=== PATIENT | male | born 1985 | race African-American/Black ===

== ENCOUNTER 2018-12-29 08:46 | Emergency (ER) | payer SELFPAY ==
--- NOTE | 2018-12-29 09:42 | ER ---
Nurse's Notes [facility] Name: Jose Nieves Age: 33 yrs Sex: Male : 1985 Arrival Date: 12/29/2018 Time: 08:48 Bed 11 Private MD: None, None Diagnosis: Headache;Rash and other nonspecific skin eruption Presentation: 12/29 09:01 Presenting complaint: Patient states: feels like he has a rash on his neck, feels iw burning sensation, and also has had headaches for over a month takes tylenol but still has a headache, hx of migraines, not on meds. Transition of care: patient was not received from another setting of care. Onset of symptoms was November 2018. Risk Assessment: Do you want to hurt yourself or someone else? Patient reports no desire to harm self or others. Initial Sepsis Screen: Does the patient meet any 2 criteria? No. Patient's initial sepsis screen is negative. Does the patient have a suspected source of infection? No. Patient's initial sepsis screen is negative. Care prior to arrival: None. 09:01 Method Of Arrival: Ambulatory iw 09:01 Acuity: NEDA 4 iw Triage Assessment: 09:00 Pain: Also complains of no other associated symptoms. iw 09:15 Headache History: The patient has had previous headaches and this one is similar to iw previous episodes. 10:18 Pain: Pain began. iw Historical: - Allergies: 09:02 No Known Allergies; iw - Home Meds: 09:02 None [Active]; iw - PMHx: 09:02 None; iw - PSHx: 09:02 Tonsillectomy; iw - Immunization history:: Adult Immunizations. - Ebola Screening: : Patient negative for fever greater than or equal to 101.5 degrees Fahrenheit, and additional compatible Ebola Virus Disease symptoms Patient denies exposure to infectious person Patient denies travel to an Ebola-affected area in the 21 days before illness onset No symptoms or risks identified at this time. - Social history:: Smoking status: . Screenin:13 Abuse screen: Denies threats or abuse. Denies injuries from another. Nutritional iw screening: No deficits noted. Tuberculosis screening: No symptoms or risk factors identified. Fall Risk None identified. Assessment: 09:12 General: Appears in no apparent distress. Behavior is calm, cooperative. Pain: iw Complains of pain in forehead Pain currently is 7 out of 10 on a pain scale. Neuro: Level of Consciousness is awake, alert, obeys commands, Oriented to person, place, time, situation, Moves all extremities. Full function. Cardiovascular: Patient's skin is warm and dry. Respiratory: Respiratory effort is even, unlabored, Respiratory pattern is regular. Derm: Skin is intact, is healthy with good turgor. Musculoskeletal: Range of motion: intact in all extremities. Vital Signs: 09:02 BP 109 / 84; Pulse 73; Resp 18; Temp 97.4(TE); Pulse Ox 98% ; Weight 113.4 kg; Height 5 iw ft. 10 in. (177.80 cm); Pain 7/10; 09:02 Body Mass Index 35.87 (113.40 kg, 177.80 cm) iw ED Course: 08:48 Patient arrived in ED. mr 08:49 None, None is Private Physician. mr 08:54 Keeley Morse, RN is Primary Nurse. iw 08:56 [facility] [place] 08:56 Dillan Hinton MD is Attending Physician. jmm 09:02 Triage completed. iw 09:02 Arm band placed on. iw 09:15 Patient has correct armband on for positive identification. iw 09:41 aDvid Monsalve MD is Referral Physician. [place] 09:47 No provider procedures requiring assistance completed. Patient did not have IV access iw during this emergency room visit. Administered Medications: No medications were administered Outcome: 09:41 Discharge ordered by MD. [place] 09:47 Discharged to home ambulatory. iw 09:47 Condition: good 09:47 Discharge instructions given to patient, Instructed on discharge instructions, follow up and referral plans. Demonstrated understanding of instructions, follow-up care. 09:48 Patient left the ED. iw Signatures: Nitin Gaines PA PA jmm Rivera, Mary mr Keeley Morse, RN RN iw Corrections: (The following items were deleted from the chart) 09:08 09:02 Resp 18bpm; Pulse Ox 98%; Temp 97.4F Temporal; 113.4 kg; Height 5 ft. 10 in.; iw BMI: 35.8; Pain 7/10; iw
--- NOTE | 2018-12-29 09:42 | EDPHYS ---
Physician Documentation [facility] Name: Jose Nieves Age: 33 yrs Sex: Male : 1985 Arrival Date: 12/29/2018 Time: 08:48 Bed 11 Private MD: None, None ED Physician Dillan Hinton HPI: 12/29 09:36 This 33 yrs old Black Male presents to ER via Ambulatory with complaints of Rash, jmm Headache. 09:36 The patient's rash thought to be caused by an unknown cause. Onset: The jmm symptoms/episode began/occurred gradually, 1 week(s) ago. Associated signs and symptoms: Pertinent positives: burning sensation, Pertinent negatives: itching, nausea, swelling of lips, swelling of throat, swelling of tongue. This is a 33 year old male with no chronic medical conditions that presents to the ED with complaints of facial rash for 1 week. Patient also complains of a gradual onset headache beginning 1 month ago. Patient states having similar intermittent headaches for the past year. Denies neck stiffness. . Historical: - Allergies: 09:02 No Known Allergies; iw - Home Meds: 09:02 None [Active]; iw - PMHx: 09:02 None; iw - PSHx: 09:02 Tonsillectomy; iw - Immunization history:: Adult Immunizations. - Ebola Screening: : Patient negative for fever greater than or equal to 101.5 degrees Fahrenheit, and additional compatible Ebola Virus Disease symptoms Patient denies exposure to infectious person Patient denies travel to an Ebola-affected area in the 21 days before illness onset No symptoms or risks identified at this time. - Social history:: Smoking status: . ROS: 09:36 Constitutional: Negative for fever, chills, and weight loss, Cardiovascular: Negative jmm for chest pain, palpitations, and edema, Respiratory: Negative for shortness of breath, cough, wheezing, and pleuritic chest pain. 09:36 Skin: Positive for rash. 09:36 Neuro: Positive for headache. 09:36 All other systems are negative. Exam: 09:36 Constitutional: This is a well developed, well nourished patient who is awake, alert, jmm and in no acute distress. Head/Face: atraumatic. Eyes: EOMI, no conjunctival erythema appreciated ENT: Moist Mucus Membranes Neck: Trachea midline, Supple Chest/axilla: Normal chest wall appearance and motion. Cardiovascular: Regular rate and rhythm. No edema appreciated Respiratory: Normal respirations, no respiratory distress appreciated Abdomen/GI: Non distended, soft 09:36 Skin: rash noted consistent with dermatitis to the left side of the forehead, non tender to palpation. 09:36 Neuro: Orientation: is normal, Mentation: is normal, Memory: is normal, Gait: is steady. 09:36 Psych: Behavior/mood is pleasant, cooperative. Vital Signs: 09:02 BP 109 / 84; Pulse 73; Resp 18; Temp 97.4(TE); Pulse Ox 98% ; Weight 113.4 kg; Height 5 iw ft. 10 in. (177.80 cm); Pain 7/10; 09:02 Body Mass Index 35.87 (113.40 kg, 177.80 cm) iw MDM: 09:35 Patient medically screened. [facility] 09:36 Data reviewed: vital signs, nurses notes. Counseling: I had a detailed discussion with [facility] the patient and/or guardian regarding: the historical points, exam findings, and any diagnostic results supporting the discharge/admit diagnosis, the need for outpatient follow up, to return to the emergency department if symptoms worsen or persist or if there are any questions or concerns that arise at home. Refusal of service: The patient/guardian displays adequate decision making capability and despite a detailed discussion of alternatives, benefits, risks, and consequences refuses: CT Scan. ED course: No focal neuro deficits, patient is alert and non toxic in appearance. A febrile. Character of headache is not consistent with SAH or meningitis. Patient is given return precautions. . Administered Medications: No medications were administered Disposition: 11:44 Co-signature as Attending Physician, Dillan Hinton MD. rn Disposition: 12/29/18 09:41 Discharged to Home. Impression: Headache, Rash and other nonspecific skin eruption. - Condition is Stable. - Discharge Instructions: General Headache Without Cause, Rash. - Medication Reconciliation Form, Thank You Letter, Antibiotic Education, Prescription Opioid Use, Work release form form. - Follow up: David Monsalve MD; When: 2 - 3 days; Reason: Recheck today's complaints, Continuance of care, Re-evaluation by your physician. Signatures: Nitin Gaines PA PA Keeley Alcantar RN RN iw Dillan Hinton MD MD field kiln burner: (The following items were deleted from the chart) 09:48 09:42 12/29/2018 09:41 Discharged to Home. Impression: Headache; Rash and other iw nonspecific skin eruption. Condition is Stable. Forms are Medication Reconciliation Form, Thank You Letter, Antibiotic Education, Prescription Opioid Use. Follow up: David Monsalve; When: 2 - 3 days; Reason: Recheck today's complaints, Continuance of care, Re-evaluation by your physician. harrison
== END 2018-12-29 09:48 | disposition home or self-care (01) ==
LOC: ER 08:46
DX: R21 Rash and other nonspecific skin eruption (principal)
CPT/HCPCS: 99281

== ENCOUNTER 2019-05-19 02:22 | Emergency (ER) | payer SELFPAY ==
[2019-05-19 02:51] LABS: Absolute Lymphocytes (CBC) 2.8 K/uL (0.7-4.9); Basophils % 0.8 % (0-1.3); Hematocrit 47.1 % (39.6-49.0); MPV 8.2 fL (7.6-11.3); Monocytes % 7.7 % (3.3-12.3); RBC Red Blood Cell Count 5.88 M/uL (4.33-5.43)
[2019-05-19] MEDS ORDERED: LIDOCAINE VISCOUS 2% SOLN 15 ML UDC ONE (02:53)
[2019-05-19] MEDS ORDERED: MAGNES/ALUMIN/SIMET 30ML UCUP ONE (02:54)
[2019-05-19 03:08] LABS: ALT/SGPT 28 U/L (12-78); AST/SGOT 14 U/L (15-37); Albumin 3.5 g/dL (3.4-5.0); Alkaline Phosphatase 81 U/L (45-117); BUN Blood Urea Nitrogen 13 mg/dL (7-18); Bicarbonate 30 mmol/L (21-32); Bilirubin Direct 0.1 mg/dL (0-0.2); Bilirubin Total 0.4 mg/dL (0.2-1.0); Glucose Level 101 mg/dL (74-106); Lipase 91 U/L (73-393); Potassium 3.5 mmol/L (3.5-5.1); Protein, Total 7.2 g/dL (6.4-8.2); Sodium Level 141 mmol/L (136-145)
[2019-05-19] MEDS ORDERED: MEPERIDINE HCL 25 MG/0.5 ML ONE (03:31)
[2019-05-19] MEDS ORDERED: DIPHENHYDRAMINE 50 MG/ML VIAL ONE (03:58)
--- NOTE | 2019-05-19 05:00 | EDPHYS ---
Physician Documentation [facility] Name: Jose Nieves Age: 34 yrs Sex: Male : 1985 Arrival Date: 05/19/2019 Time: 02:23 Bed 14 Private MD: ED Physician Dillan Hinton HPI: 05/19 02:40 This 34 yrs old Black Male presents to ER via Ambulatory with complaints of Abdominal rn Pain. 02:40 The patient presents with abdominal pain in the epigastric area. Onset: The rn symptoms/episode began/occurred just prior to arrival. The symptoms do not radiate. Associated signs and symptoms: none. Pertinent negatives: nausea and vomiting, diarrhea, fever, shortness of breath. The symptoms are described as sharp. Modifying factors: The symptoms are alleviated by nothing, the symptoms are aggravated by touching the area. Severity of pain: At its worst the pain was moderate in the emergency department the pain is unchanged. The patient has not experienced similar symptoms in the past. The patient has not recently seen a physician. Denies heavy dinner or drinking, no trauma. + sudden onset epigastric and mid abd pain.. Historical: - Allergies: 02:34 No Known Allergies; ao - Home Meds: 02:34 None [Active]; ao - PMHx: 02:34 None; ao - PSHx: 02:34 None; ao - Immunization history:: Adult Immunizations up to date. - Social history:: Smoking status: Patient/guardian denies using tobacco, Patient/guardian denies using alcohol, street drugs. - Ebola Screening: : Patient negative for fever greater than or equal to 101.5 degrees Fahrenheit, and additional compatible Ebola Virus Disease symptoms Patient denies exposure to infectious person Patient denies travel to an Ebola-affected area in the 21 days before illness onset. - Family history:: not pertinent. - Hospitalizations: : No recent hospitalization is reported. ROS: 02:40 Constitutional: Negative for fever, chills, and weight loss, Eyes: Negative for injury, rn pain, redness, and discharge, Neck: Negative for injury, pain, and swelling, Cardiovascular: Negative for chest pain, palpitations, and edema, Respiratory: Negative for shortness of breath, cough, wheezing, and pleuritic chest pain, Abdomen/GI: + mid and upper abd pain, negative for vomiting/diarrhea Back: Negative for injury and pain, : Negative for injury, bleeding, discharge, and swelling, MS/Extremity: Negative for injury and deformity, Skin: Negative for injury, rash, and discoloration, Neuro: Negative for headache, weakness, numbness, tingling, and seizure. Exam: 02:40 Constitutional: This is a well developed, well nourished patient who is awake, alert, rn appears anxious Head/Face: Normocephalic, atraumatic. Eyes: Pupils equal round and reactive to light, extra-ocular motions intact. Lids and lashes normal. Conjunctiva and sclera are non-icteric and not injected. Cornea within normal limits. Periorbital areas with no swelling, redness, or edema. ENT: dry MM Respiratory: No increased work of breathing, no retractions or nasal flaring. Abdomen/GI: soft, + epigastric and mid abd tenderness, no rebound or peritoneal signs MS/ Extremity: Pulses equal, no cyanosis. Neurovascular intact. Full, normal range of motion. Equal circumference. Neuro: Awake and alert, GCS 15, oriented to person, place, time, and situation. Cranial nerves II-XII grossly intact. Motor strength 5/5 in all extremities. Sensory grossly intact. Cerebellar exam normal. Normal gait. Vital Signs: 02:34 BP 134 / 100; Pulse 65; Resp 16 S; Temp 97.7(O); Pulse Ox 99% on R/A; Weight 95.25 kg ao (R); Height 5 ft. 10 in. (177.80 cm) (R); Pain 7/10; 03:00 BP 153 / 109; Pulse 71; Resp 16; Pulse Ox 100% on R/A; jb4 04:00 BP 132 / 93; Pulse 69; Resp 16; Pulse Ox 100% on R/A; jb4 05:01 BP 132 / 94; Pulse 63; Resp 16; Pulse Ox 99% on R/A; jb4 02:34 Body Mass Index 30.13 (95.25 kg, 177.80 cm) ao MDM: 02:28 Patient medically screened. rn 04:58 Differential diagnosis: gastritis, gastroesophageal reflux disease, non-specific abd rn pain, pancreatitis. Data reviewed: vital signs, nurses notes, lab test result(s), radiologic studies, CT scan, and as a result, I will discharge patient. Counseling: I had a detailed discussion with the patient and/or guardian regarding: the historical points, exam findings, and any diagnostic results supporting the discharge/admit diagnosis, lab results, radiology results, the need for outpatient follow up, to return to the emergency department if symptoms worsen or persist or if there are any questions or concerns that arise at home. Response to treatment: the patient's symptoms have mildly improved after treatment, and as a result, I will discharge patient. Special discussion: Based on the patient's Hx, exam, and Dx evaluation, there is no indication for emergent surgery or inpatient Tx. It is understood by the patient/guardian that if the Sx's persist or worsen they need to return immediately for re-evaluation. I discussed with the patient/guardian in detail that at this point there is no indication for admission to the hospital. It is understood, however, that if the symptoms persist or worsen the patient needs to return immediately for re-evaluation. ED course: CT and bloodwork without acute findings, + mesenteric adenitis, may be coming down with viral syndrome, will dc home with prn pain meds and return precautions.. 05/19 02:31 Order name: Basic Metabolic Panel rn 05/19 02:31 Order name: CBC with Diff; Complete Time: 03:12 rn 05/19 02:31 Order name: Creatinine for Radiology; Complete Time: 03:12 rn 05/19 02:31 Order name: Hepatic Function; Complete Time: 03:12 rn 05/19 02:31 Order name: Lipase; Complete Time: 03:12 rn 05/19 02:32 Order name: Basic Metabolic Panel; Complete Time: 03:12 EDNV 05/19 02:31 Order name: IV Saline Lock; Complete Time: 02:44 rn 05/19 02:31 Order name: Labs collected and sent; Complete Time: 02:44 rn 05/19 02:31 Order name: CT Abd/Pelvis - IV Contrast Only rn 05/19 02:32 Order name: EKG; Complete Time: 02:33 rn 05/19 02:32 Order name: EKG - Nurse/Tech; Complete Time: 02:57 rn Administered Medications: 02:41 Drug: GI Cocktail without - (Maalox Suspension 30 ml, Lidocaine Liquid 2 % 15 ao ml) Route: PO; 03:13 Follow up: Response: No adverse reaction; Pain is unchanged, physician notified jb4 03:22 Drug: Demerol 25 mg Route: IVP; Site: right antecubital; jb4 03:52 Follow up: Response: No adverse reaction; Pain is decreased jb4 03:47 Drug: Benadryl 50 mg Route: IVP; Site: right antecubital; jb4 05:33 Follow up: Response: No adverse reaction; Marked relief of symptoms jb4 Disposition: 05/19/19 04:59 Discharged to Home. Impression: Nonspecific mesenteric lymphadenitis, Unspecified abdominal pain. - Condition is Stable. - Discharge Instructions: Abdominal Pain, Adult, Mesenteric Adenitis, Pediatric. - Prescriptions for Bentyl 20 mg Oral Tablet - take 1 tablet by ORAL route every 6 hours As needed; 20 tablet. Tylenol- Codeine #3 300-30 mg Oral Tablet - take 1 tablet by ORAL route every 6 hours As needed; 15 tablet. - Medication Reconciliation Form, Thank You Letter, Antibiotic Education, Prescription Opioid Use form. - Follow up: Private Physician; When: As needed; Reason: Recheck today's complaints, Re-evaluation by your physician. - Problem is new. - Symptoms have improved. Signatures: Dispatcher [employer] EDMS Dillan Hinton MD MD rn Ortiz, Alex, RN RN ao Bryson, James, RN RN jb4 Corrections: (The following items were deleted from the chart) 05:35 04:59 05/19/2019 04:59 Discharged to Home. Impression: Nonspecific mesenteric jb4 lymphadenitis; Unspecified abdominal pain. Condition is Stable. Forms are Medication Reconciliation Form, Thank You Letter, Antibiotic Education, Prescription Opioid Use. Follow up: Private Physician; When: As needed; Reason: Recheck today's complaints, Re-evaluation by your physician. Problem is new. Symptoms have improved. rn
--- NOTE | 2019-05-19 05:00 | ER ---
Nurse's Notes [facility] Name: Jose Nieves Age: 34 yrs Sex: Male : 1985 Arrival Date: 05/19/2019 Time: 02:23 Bed 14 Private MD: Diagnosis: Nonspecific mesenteric lymphadenitis;Unspecified abdominal pain Presentation: 05/19 02:32 Presenting complaint: Patient states: Abdominal pain for 3 hours. negative nausea, ao vomiting, fever or diarrea. Transition of care: patient was not received from another setting of care. Onset of symptoms was May 19, 2019. Risk Assessment: Do you want to hurt yourself or someone else? Patient reports no desire to harm self or others. Initial Sepsis Screen: Does the patient meet any 2 criteria? No. Patient's initial sepsis screen is negative. Does the patient have a suspected source of infection? No. Patient's initial sepsis screen is negative. Care prior to arrival: None. 02:32 Method Of Arrival: Ambulatory ao 02:32 Acuity: NEDA 3 ao Historical: - Allergies: 02:34 No Known Allergies; ao - Home Meds: 02:34 None [Active]; ao - PMHx: 02:34 None; ao - PSHx: 02:34 None; ao - Immunization history:: Adult Immunizations up to date. - Social history:: Smoking status: Patient/guardian denies using tobacco, Patient/guardian denies using alcohol, street drugs. - Ebola Screening: : Patient negative for fever greater than or equal to 101.5 degrees Fahrenheit, and additional compatible Ebola Virus Disease symptoms Patient denies exposure to infectious person Patient denies travel to an Ebola-affected area in the 21 days before illness onset. - Family history:: not pertinent. - Hospitalizations: : No recent hospitalization is reported. Screenin:36 Abuse screen: Denies threats or abuse. Denies injuries from another. Nutritional ao screening: No deficits noted. Tuberculosis screening: No symptoms or risk factors identified. Fall Risk None identified. Assessment: 02:28 General: Appears in no apparent distress. uncomfortable, Behavior is calm, cooperative, jb4 appropriate for age. Pain: Complains of pain in epigastric area, right upper quadrant and left upper quadrant Pain does not radiate. Pain currently is 9 out of 10 on a pain scale. Quality of pain is described as crampy, Pain began 1 day ago. Neuro: Level of Consciousness is awake, alert, obeys commands, Oriented to person, place, time, situation. Cardiovascular: Patient's skin is warm and dry. Respiratory: Airway is patent Respiratory effort is even, unlabored, Respiratory pattern is regular, symmetrical. GI: Abdomen is non-distended, obese, Bowel sounds present X 4 quads. Abd is soft X 4 quads Abd is non tender in umbilical area, suprapubic area, right lower quadrant and left lower quadrant Abdomen is tender to palpation in epigastric area, right upper quadrant and left upper quadrant. : No signs and/or symptoms were reported regarding the genitourinary system. EENT: No signs and/or symptoms were reported regarding the EENT system. Derm: Skin is intact, Skin is dry, Skin is normal, Skin temperature is warm. Musculoskeletal: No signs and/or symptoms reported regarding the musculoskeletal system. 03:13 Reassessment: Patient appears in no apparent distress at this time. Patient and/or jb4 family updated on plan of care and expected duration. Pain level reassessed. Patient is alert, oriented x 3, equal unlabored respirations, skin warm/dry/pink. Pt reports an increase in pain provider notified, see MAR for orders. 03:40 Reassessment: Pt back from CT, Radiology staff reports pt showing hives after IV jb4 contrast, provider notified, see MAR for orders. 04:00 Reassessment: Patient appears in no apparent distress at this time. Patient and/or jb4 family updated on plan of care and expected duration. Pain level reassessed. Patient is alert, oriented x 3, equal unlabored respirations, skin warm/dry/pink. 05:30 Reassessment: Patient appears in no apparent distress at this time. Patient and/or jb4 family updated on plan of care and expected duration. Pain level reassessed. Patient is alert, oriented x 3, equal unlabored respirations, skin warm/dry/pink. PT left ED ambulatory with steady gait, verbalized understanding of d/c and follow up instructions. hives have cleared. Patient states feeling better. Vital Signs: 02:34 BP 134 / 100; Pulse 65; Resp 16 S; Temp 97.7(O); Pulse Ox 99% on R/A; Weight 95.25 kg ao (R); Height 5 ft. 10 in. (177.80 cm) (R); Pain 7/10; 03:00 BP 153 / 109; Pulse 71; Resp 16; Pulse Ox 100% on R/A; jb4 04:00 BP 132 / 93; Pulse 69; Resp 16; Pulse Ox 100% on R/A; jb4 05:01 BP 132 / 94; Pulse 63; Resp 16; Pulse Ox 99% on R/A; jb4 02:34 Body Mass Index 30.13 (95.25 kg, 177.80 cm) ao ED Course: 02:23 Patient arrived in ED. am2 02:28 Marcel Vann, RN is Primary Nurse. jb4 02:28 Dillan Hinton MD is Attending Physician. rn 02:33 Triage completed. ao 02:35 Arm band placed on right wrist. Patient placed in an exam room, on a stretcher, on ao pulse oximetry, Patient notified of wait time. 02:36 Patient has correct armband on for positive identification. Pulse ox on. NIBP on. ao 02:40 Initial lab(s) drawn, by me, by EMS personnel. Inserted saline lock: 20 gauge in right jb4 antecubital area, using aseptic technique. Blood collected. 02:51 Radiology exam delayed due to lab results not completed at this time. (BUN/Creatinine). eh 03:52 CT Abd/Pelvis - IV Contrast Only In Process Unspecified. EDMS 05:01 No provider procedures requiring assistance completed. IV discontinued, intact, jb4 bleeding controlled, No redness/swelling at site. Administered Medications: 02:41 Drug: GI Cocktail without - (Maalox Suspension 30 ml, Lidocaine Liquid 2 % 15 ao ml) Route: PO; 03:13 Follow up: Response: No adverse reaction; Pain is unchanged, physician notified jb4 03:22 Drug: Demerol 25 mg Route: IVP; Site: right antecubital; jb4 03:52 Follow up: Response: No adverse reaction; Pain is decreased jb4 03:47 Drug: Benadryl 50 mg Route: IVP; Site: right antecubital; jb4 05:33 Follow up: Response: No adverse reaction; Marked relief of symptoms jb4 Outcome: 04:59 Discharge ordered by . rn 05:01 Discharged to home ambulatory, with family. jb4 05:01 Condition: stable 05:01 Discharge instructions given to patient, Instructed on discharge instructions, follow up and referral plans. medication usage, Demonstrated understanding of instructions, follow-up care, medications, Prescriptions given X 2. 05:35 Patient left the ED. jb4 Signatures: Dispatcher [employer] Matthew Gillette Roman, MD MD rn Ortiz, Alex, RN RN ao Bryson, James, RN RN jb4 Asia Ward
--- NOTE | 2019-05-19 06:39 | EKG ---
Test Date: 2019-05-19 Test Time: 02:49:24 Orange Grower: DELORES MEASUREMENT RESULTS: Intervals: Rate: 68 DC: 188 QRSD: 100 QT: 380 QTc: 404 [place]: P: 37 DC: 188 QRS: 34 T: 40 INTERPRETIVE STATEMENTS: Normal sinus rhythm Normal ECG No previous ECG available for comparison Electronically Signed On 05-19-19 06:38:43 CDT by Kaden Fernando
--- NOTE | 2019-05-19 10:24 | RAD REPORT ---
EXAM DESCRIPTION: CT - Abdomen Pelvis W Contrast - 05/19/2019 7:12 am CLINICAL HISTORY: Mid abdominal pain. COMPARISON: None. TECHNIQUE: Axial [address] imaging of the abdomen and pelvis performed utilizing intravenous contrast. Reformatted coronal and sagittal images reviewed. A dose reduction technique was utilized with automated exposure control according to patient size. FINDINGS: LOWER THORAX: Clear lung bases. Heart is normal in size. ABDOMEN: LIVER/GALLBLADDER: Normal liver size and contour. Attenuation is decreased due to mild steatosis. No liver mass or biliary dilatation. Normal gallbladder. SPLEEN/PANCREAS: Normal spleen and pancreas. KIDNEYS/ADRENAL GLANDS: Normal adrenal glands. Normal right and left renal attenuation. Normal bilat eral renal enhancement. Lateral right renal exophytic 8 mm cyst. No hydronephrosis. RETROPERITONEAL VESSELS/NODES: Normal aorta and inferior vena cava caliber. No adenopathy. Normal ap pearance of the mesenteric vessels. BOWEL: Normal stomach and small bowel loops. Normal appendix in the right lower quadrant. Normal col on. MESENTERY/PERITONEUM: There is mild left mesenteric edema. A few slightly enlarged central mesenteri c lymph nodes are identified up to 7 mm. No ascites or free air. PELVIS: BLADDER: Normal bladder. GENITAL ORGANS: Prostatic calcification noted. Normal prostate size. PERITONEUM: No pelvic free fluid or lymphadenopathy. BONES AND SOFT TISSUES: Normal bony pelvis, hips, sacrum, and spine. Unremarkable soft tissues. IMPRESSION: 1. Fatty liver. 2. Mild central and left mesenteric adenitis. Electronically signed by: Emy Kaminski DO 05/19/2019 4:03 AM CDT Due to temporary technical issues with the PACS/Fluency reporting system, reports are being signed by the in house radiologist as a courtesy to ensure prompt reporting. The interpreting radiologist is f ully responsible for the content of the report.
== END 2019-05-19 05:35 | disposition home or self-care (01) ==
LOC: ER 02:22
DX: I88.0 Nonspecific mesenteric lymphadenitis (principal)
CPT/HCPCS: 36415; 74177; 80048; 80076; 83690; 85025; 93005; 96374; 96375; 99284; J2175; Q9967

== ENCOUNTER 2022-05-27 08:01 | Emergency (ER) | payer SELFPAY ==
[2022-05-27 08:28] LABS: Absolute Lymphocytes (CBC) 1.6 K/uL (0.7-4.9); Hematocrit 47.7 % (39.6-49.0); Lymphocytes % 13.8 % (15.3-44.8); MCV 80.6 fL (80-100); MPV 7.2 fL (7.6-11.3); RBC Red Blood Cell Count 5.92 M/uL (4.33-5.43)
[2022-05-27] MEDS ORDERED: MORPHINE 4 MG/ML SYR ONE (08:32)
[2022-05-27] MEDS ORDERED: PANTOPRAZOLE 40 MG INJ ONE (08:32)
[2022-05-27] MEDS ORDERED: ONDANSETRON 4 MG/2 ML VIAL ONE (08:32)
[2022-05-27 08:54] LABS: Albumin 3.9 g/dL (3.4-5.0); Bilirubin Direct 0.2 mg/dL (0-0.2); Bilirubin Total 0.7 mg/dL (0.2-1.0); Potassium 3.8 mmol/L (3.5-5.1); Protein, Total 8.1 g/dL (6.4-8.2); Troponin High Sensitivity 4.1 pg/mL (<58.9)
--- NOTE | 2022-05-27 09:21 | RAD REPORT ---
EXAM DESCRIPTION: RAD - Chest Single View - 05/27/2022 8:43 am CLINICAL HISTORY: CHEST PAIN COMPARISON: None TECHNIQUE: AP portable chest image was obtained 05/27/2022 8:43 am . FINDINGS: Lungs are clear. Heart and vasculature are normal. No measurable pleural effusion and no p neumothorax. No acute bony abnormality seen. No acute aortic findings suspected. IMPRESSION: No acute cardiopulmonary process.
--- NOTE | 2022-05-27 09:44 | ER ---
Nurse's Notes [facility] Name: Jose Nieves Age: 37 yrs Sex: Male : 1985 Arrival Date: 05/27/2022 Time: 08:04 Bed 7 Private MD: Diagnosis: Chest pain, unspecified Presentation: 05/27 08:08 Chief complaint: Patient states: upper abd/ epigastric pain since yesterday , vomited iw once. Coronavirus screen: At this time, the client does not indicate any symptoms associated with coronavirus-19. Ebola Screen: Patient negative for fever greater than or equal to 101.5 degrees Fahrenheit, and additional compatible Ebola Virus Disease symptoms Patient denies exposure to infectious person. Patient denies travel to an Ebola-affected area in the 21 days before illness onset. No symptoms or risks identified at this time. Initial Sepsis Screen: Does the patient meet any 2 criteria? No. Patient's initial sepsis screen is negative. Does the patient have a suspected source of infection? No. Patient's initial sepsis screen is negative. Risk Assessment: Do you want to hurt yourself or someone else? Patient reports no desire to harm self or others. Onset of symptoms was May 26, 2022. 08:08 Method Of Arrival: Ambulatory iw 08:08 Acuity: NEDA 3 iw Historical: - Allergies: 08:09 No Known Allergies; iw - Home Meds: 08:09 None [Active]; iw - PMHx: 08:09 None; iw - PSHx: 08:09 None; iw - Immunization history:: Client reports having NOT received the Covid vaccine. - Social history:: Smoking status: Patient denies any tobacco usage or history of. Screenin:30 Abuse screen: Denies threats or abuse. Denies injuries from another. Nutritional jl7 screening: No deficits noted. Tuberculosis screening: No symptoms or risk factors identified. Fall Risk IV access (20 points). Total Ding Fall Scale indicates No Risk (0-24 pts). Assessment: 08:15 General: Appears in no apparent distress. uncomfortable, Behavior is calm, cooperative, jl7 appropriate for age. Pain: Complains of pain in right upper quadrant Pain currently is 8 out of 10 on a pain scale. Quality of pain is described as "Punching". Neuro: Arredondo Agitation-Sedation Scale (RASS): +1 Restless Level of Consciousness is awake, alert, obeys commands, Oriented to person, place, time, situation. Cardiovascular: Patient's skin is warm and dry. Respiratory: Airway is patent Respiratory effort is even, unlabored, Respiratory pattern is regular, symmetrical. GI: Abdomen is round non-distended, Bowel sounds present X 4 quads. Abd is soft and non tender in left upper quadrant, right lower quadrant and left lower quadrant Abd is soft Abdomen is tender to palpation in right upper quadrant Reports nausea, vomiting. : No signs and/or symptoms were reported regarding the genitourinary system. Derm: Skin is pink, warm \\T\\ dry. 09:54 Reassessment: PT D/C HOME AMBULATORY, DX WITH NON-CARDIAC CHEST PAIN. bp Vital Signs: 08:09 BP 141 / 96; Pulse 70; Resp 16; Temp 98.0; Pulse Ox 99% on R/A; iw 08:35 BP 155 / 96; Pulse 78; Resp 15; Pulse Ox 99% ; jl7 09:54 BP 143 / 98; Pulse 68; Resp 16; Pulse Ox 99% ; bp ED Course: 08:04 Patient arrived in ED. as 08:04 Jacqui Calvert FNP-C [facility]. kb 08:04 Gold Antonio DO is Attending Physician. kb 08:09 Triage completed. iw 08:09 Arm band placed on. iw 08:11 Nayan Fairchild, RN is Primary Nurse. bp 08:30 Patient has correct armband on for positive identification. Bed in low position. Call jl7 light in reach. Side rails up X 1. Pulse ox on. NIBP on. 08:30 No provider procedures requiring assistance completed. Initial lab(s) drawn, by skip atwood sent to lab. Inserted saline lock: 20 gauge in right forearm, using aseptic technique. Blood collected. 08:45 XRAY Chest (1 view) In Process Unspecified. EDMS 08:50 Bradley Musa, SHANELL is Primary Nurse. jl7 09:54 IV discontinued, intact, bleeding controlled, No redness/swelling at site. Pressure bp dressing applied. Administered Medications: 08:28 Drug: Zofran (Ondansetron) 4 mg Route: IVP; Site: right forearm; jl7 09:50 Follow up: Response: No adverse reaction bp 08:31 Drug: morphine 4 mg Route: IVP; Infused Over: 4 mins; Site: right forearm; jl7 09:49 Follow up: Response: Pain is decreased bp 08:36 Drug: ProTONIX (pantoprazole) 40 mg Route: IVP; Site: right forearm; jl7 09:50 Follow up: Response: No adverse reaction bp Medication: 08:15 VIS not applicable for this client. jl7 Outcome: 09:43 Discharge ordered by . milton 09:54 Discharged to home ambulatory. bp 09:54 Condition: stable 09:54 Discharge instructions given to patient, Instructed on discharge instructions, follow up and referral plans. Demonstrated understanding of instructions, follow-up care. 09:56 Patient left the ED. bp Signatures: Dispatcher [employer] EDMS Jacqui Calvert, KADEEM-Marnie GOSPEL WORKER-Perla Wilknison Irene, SHANELL RN iw Bradley Musa RN RN jl7 Nayan Fairchild RN RN bp Corrections: (The following items were deleted from the chart) 08:10 08:08 Chief complaint: Patient states: upper abd pain since yesterday , vomited once iw iw 08:10 08:08 Chief complaint: Patient states: upper abd pain since yesterday , vomited once iw iw 08:10 08:09 Pulse 70bpm; Resp 16bpm; Pulse Ox 99% RA; iw iw 08:14 08:09 BP 141 / 96; Pulse 70bpm; Resp 16bpm; Pulse Ox 99% RA; iw iw
--- NOTE | 2022-05-27 09:44 | EDPHYS ---
Physician Documentation [facility] Name: Jose Nieves Age: 37 yrs Sex: Male : 1985 Arrival Date: 05/27/2022 Time: 08:04 Bed 7 Private MD: ED Physician Gold Antonio HPI: 05/27 11:41 This 37 yrs old Black Male presents to ER via Ambulatory with complaints of Abdominal kb Pain. 11:41 Onset: The symptoms/episode began/occurred yesterday, at 16:00. The symptoms do not kb radiate. Associated signs and symptoms: none. The patient has experienced similar episodes in the past, multiple times. The patient has not recently seen a physician. 11:43 The patient or guardian reports chest pain that is located primarily in the epigastric kb area. The pain does not radiate. Associated signs and symptoms: The patient has no apparent associated signs or symptoms. The chest pain is described as aching. Duration: The patient or guardian reports a single episode. Modifying factors: The symptoms are alleviated by nothing. the symptoms are aggravated by nothing. Severity of pain: At its worst the pain was moderate in the emergency department the pain is unchanged. Pt reports epigastric pain that started at 1600 yesterday. States he has had this several times in the past, but this time it has lasted longer than normal. . Historical: - Allergies: 08:09 No Known Allergies; iw - Home Meds: 08:09 None [Active]; iw - PMHx: 08:09 None; iw - PSHx: 08:09 None; iw - Immunization history:: Client reports having NOT received the Covid vaccine. - Social history:: Smoking status: Patient denies any tobacco usage or history of. ROS: 10:49 Constitutional: Negative for fever, chills, and weight loss. kb 10:49 Cardiovascular: Positive for chest pain, Negative for edema, orthopnea, palpitations, paroxysmal nocturnal dyspnea. 10:49 All other systems are negative. Exam: 08:48 Constitutional: This is a well developed, well nourished patient who is awake, alert, kb and in no acute distress. Head/Face: Normocephalic, atraumatic. ENT: Moist Mucous membranes Cardiovascular: Regular rate and rhythm with a normal S1 and S2. No gallops, murmurs, or rubs. No pulse deficits. Respiratory: Respirations even and unlabored. No increased work of breathing. Talking in full sentences Abdomen/GI: Soft, non-tender. No distention Skin: Warm, dry with normal turgor. Normal color. MS/ Extremity: Pulses equal, no cyanosis. Neurovascular intact. Full, normal range of motion. Neuro: Awake and alert, GCS 15, oriented to person, place, time, and situation. Moves all extremities. Normal gait. Psych: Awake, alert, with orientation to person, place and time. Behavior, mood, and affect are within normal limits. 08:48 ECG was reviewed by the Attending Physician. Vital Signs: 08:09 BP 141 / 96; Pulse 70; Resp 16; Temp 98.0; Pulse Ox 99% on R/A; iw 08:35 BP 155 / 96; Pulse 78; Resp 15; Pulse Ox 99% ; jl7 09:54 BP 143 / 98; Pulse 68; Resp 16; Pulse Ox 99% ; bp MDM: 08:11 Patient medically screened. kb 10:48 Data reviewed: vital signs, nurses notes. Data interpreted: Pulse oximetry: on room air kb is 99 %. Interpretation: normal. 11:41 Counseling: I had a detailed discussion with the patient and/or guardian regarding: the kb historical points, exam findings, and any diagnostic results supporting the discharge/admit diagnosis, lab results, radiology results, the need for outpatient follow up, a family practitioner, to return to the emergency department if symptoms worsen or persist or if there are any questions or concerns that arise at home. 05/27 08:11 Order name: Basic Metabolic Panel; Complete Time: 08:55 kb 05/27 08:11 Order name: CBC with Diff; Complete Time: 08:49 kb 05/27 08:11 Order name: LFT's; Complete Time: 08:55 kb 05/27 08:11 Order name: Troponin HS; Complete Time: 08:55 kb 05/27 08:11 Order name: XRAY Chest (1 view); Complete Time: 09:22 kb 05/27 08:11 Order name: EKG; Complete Time: 08:12 kb 05/27 08:11 Order name: Cardiac monitoring; Complete Time: 08:57 kb 05/27 08:11 Order name: EKG - Nurse/Tech; Complete Time: 08:57 kb 05/27 08:11 Order name: IV Saline Lock; Complete Time: 08:37 kb 07 08:11 Order name: Labs collected and sent; Complete Time: 08:37 kb 05/27 08:11 Order name: O2 Per Protocol; Complete Time: 08:37 kb 05/27 08:11 Order name: O2 Sat Monitoring; Complete Time: 08:37 kb EC:48 Rate is 75 beats/min. Rhythm is regular. QRS [place] is Normal. ID interval is normal at kb 182 msec. QRS interval is normal at 98 msec. QT interval is normal at 408 msec. Administered Medications: 08:28 Drug: Zofran (Ondansetron) 4 mg Route: IVP; Site: right forearm; jl7 09:50 Follow up: Response: No adverse reaction bp 08:31 Drug: morphine 4 mg Route: IVP; Infused Over: 4 mins; Site: right forearm; jl7 09:49 Follow up: Response: Pain is decreased bp 08:36 Drug: ProTONIX (pantoprazole) 40 mg Route: IVP; Site: right forearm; jl7 09:50 Follow up: Response: No adverse reaction bp Disposition: 22:28 Co-signature as Attending Physician, Gold Antonio DO I was immediately available on-site ms3 in the Emergency Department for consultation in the care of the patient. . Disposition Summary: 05/27/22 09:43 Discharge Ordered Location: Home kb Condition: Stable kb Diagnosis - Chest pain, unspecified kb Followup: kb - With: Emergency Department - When: As needed - Reason: Worsening of condition Followup: kb - With: Private Physician - When: 2 - 3 days - Reason: Recheck today's complaints, Continuance of care, Re-evaluation by your physician Discharge Instructions: - Discharge Summary Sheet kb - Nonspecific Chest Pain, Adult, [id number] kb - Gastroesophageal Reflux Disease, Adult, [id number] kb Forms: - Medication Reconciliation Form kb - Thank You Letter kb - Antibiotic Education kb - Prescription Opioid Use kb - Work release form eb Signatures: Dispatcher [employer] Jacqui Louis FNP-C FNP-Keeley Alfaro RN RN iw Leal, Jahala, RN RN jl7 Sims, Marcus, DO DO ms3 Nayan Fairchild RN bp Corrections: (The following items were deleted from the chart) 11:47 11:43 Pt reports epigastric pain that started at 1600 yesterday. . kb kb
[2022-05-27 10:22] VITALS: TEMP 98; O2SAT 99
[2022-05-27 10:26] VITALS: BP 143/98
--- NOTE | 2022-05-28 11:10 | EKG ---
Test Date: 2022-05-27 Test Time: 08:46:52 Interventional Physiatrist: AMANDA MEASUREMENT RESULTS: Intervals: Rate: 75 VA: 182 QRSD: 98 QT: 366 QTc: 408 Pride: P: 43 VA: 182 QRS: 50 T: 30 INTERPRETIVE STATEMENTS: Normal sinus rhythm Normal ECG Compared to ECG 05/19/2019 02:49:24 No significant changes Electronically Signed On 05-28-22 11:06:55 CDT by Jah Evans
== END 2022-05-27 09:56 | disposition home or self-care (01) ==
LOC: ER 08:01
DX: R07.9 Chest pain, unspecified (principal)
CPT/HCPCS: 36415; 71045; 80048; 80076; 84484; 85025; 93005; 96374; 96375; 99284; C9113; J2405

== ENCOUNTER 2023-11-04 08:01 | Inpatient (IN) | payer SELFPAY ==
[2023-11-04 08:31] LABS: Absolute Lymphocytes (CBC) 1.8 K/uL (0.7-4.9); Hematocrit 47.9 % (39.6-49.0); Lymphocytes % 14.7 % (15.3-44.8); MCV 80.5 fL (80-100); MPV 7.8 fL (7.6-11.3); Platelets 285 thou/uL (152-406); RBC Red Blood Cell Count 5.95 M/uL (4.33-5.43)
[2023-11-04] MEDS ORDERED: NA CHLORIDE 0.9% 1,000 ML ONE (08:31)
[2023-11-04] MEDS ORDERED: ONDANSETRON 4 MG/2 ML VIAL ONE ×2 (08:31→09:55)
[2023-11-04] MEDS ORDERED: FAMOTIDINE 20 MG/2 ML VIAL IV ONE (08:31)
--- NOTE | 2023-11-04 08:37 | RAD REPORT ---
EXAM DESCRIPTION: CT - Abdomen Pelvis W Contrast - 11/04/2023 8:26 am CLINICAL HISTORY: Abdominal pain COMPARISON: 2019 TECHNIQUE: Computed axial tomography of the abdomen pelvis was obtained. 100 cc Isovue-300 was admin istered intravenously. Oral contrast was not requested which limits evaluation of bowel and appendix All CT scans are performed using dose optimization technique as appropriate and may include automated exposure control or mA/KV adjustment according to patient size. FINDINGS: Fatty liver. Cholelithiasis. Gallbladder wall thickening with mild stranding in adjacent fat. Spleen, pancreas, adrenals and kidneys are unremarkable Normal appendix. No evidence diverticulitis IMPRESSION: Cholelithiasis with cholecystitis
[2023-11-04 08:40] LABS: Albumin 3.6 g/dL (3.4-5.0); Bilirubin Total 1.3 mg/dL (0.2-1.0); Potassium 3.5 mEq/L (3.5-5.1); Protein, Total 8.1 g/dL (6.4-8.2)
[2023-11-04] MEDS ORDERED: MORPHINE 4 MG/ML SYR ONE (08:40)
--- NOTE | 2023-11-04 09:07 | ER ---
Nurse's Notes [facility] Name: Jose Nieves Age: 38 yrs Sex: Male : 1985 Arrival Date: 11/04/2023 Time: 08:01 Bed 5 Private MD: Diagnosis: Acute cholecystitis;Upper abdominal pain, unspecified;Elevated blood-pressure reading, without diagnosis of hypertension Presentation: 11/04 08:09 Chief complaint: Upper abdominal pain x 4 days, vomiting yesterday. Coronavirus screen: hb At this time, the client does not indicate any symptoms associated with coronavirus-19. Ebola Screen: No symptoms or risks identified at this time. Initial Sepsis Screen: Does the patient meet any 2 criteria? No. Patient's initial sepsis screen is negative. Does the patient have a suspected source of infection? No. Patient's initial sepsis screen is negative. Risk Assessment: Do you want to hurt yourself or someone else? Patient reports no desire to harm self or others. Onset of symptoms was November 01, 2023. 08:09 Method Of Arrival: Ambulatory hb 08:09 Acuity: NEDA 3 hb Historical: - Allergies: 08:10 No Known Allergies; hb - Immunization history:: Adult Immunizations up to date. - Social history:: Smoking status: Patient denies any tobacco usage or history of. Screenin:12 [facility] ED Fall Risk Assessment (Adult) Score/Fall Risk Level 0 - 2 = Low Risk ll1 Oriented to surroundings, Maintained a safe environment, Educated pt \T\ family on fall prevention, incl call for assistance when getting out of bed, Hourly rounding (assess needs \T\ fall precautionary measures) done. Abuse screen: Denies threats or abuse. Nutritional screening: No deficits noted. Tuberculosis screening: No symptoms or risk factors identified. Assessment: 08:12 General: Appears uncomfortable, Behavior is calm, cooperative, appropriate for age. ll1 Pain: Complains of pain in abdomen Pain currently is 8 out of 10 on a pain scale. Quality of pain is described as aching. GI: Bowel sounds present X 4 quads. Abd is soft Abdomen is tender to palpation in epigastric area, right upper quadrant and left upper quadrant Reports upper abdominal pain, nausea, vomiting. 08:23 Reassessment: No changes from previously documented assessment. Patient and/or family hb updated on plan of care and expected duration. Pain level reassessed. Patient is alert, oriented x 3, equal unlabored respirations, skin warm/dry/pink. 08:36 Reassessment: No changes from previously documented assessment. Patient and/or family ll1 updated on plan of care and expected duration. Pain level reassessed. Patient is alert, oriented x 3, equal unlabored respirations, skin warm/dry/pink. 09:02 Reassessment: No changes from previously documented assessment. Patient and/or family ll1 updated on plan of care and expected duration. Pain level reassessed. Patient is alert, oriented x 3, equal unlabored respirations, skin warm/dry/pink. to US via wheelchair. 09:15 Reassessment: Went straight to PACU from US. Transported took his belongings to him. ll1 Vital Signs: 08:09 BP 140 / 104; Pulse 95; Resp 16; Temp 97.3(TE); Pulse Ox 99% on R/A; Weight 108.86 kg; hb Height 5 ft. 10 in. ; Pain 8/10; 08:30 BP 127 / 89; Pulse 78; Resp 18; Pulse Ox 100% on R/A; ld1 08:09 Body Mass Index 34.44 (108.86 kg, 177.8 cm) hb 08:09 Pain Scale: Adult hb ED Course: 08:03 Patient arrived in ED. mg5 08:06 Gold Antonio DO is Attending Physician. ms3 08:10 Triage completed. hb 08:11 Arm band placed on. hb 08:12 Patient has correct armband on for positive identification. Bed in low position. Call ll1 light in reach. Side rails up X 1. Provided Education on: ER procedures and process. Client placed on continuous cardiac and pulse oximetry monitoring. NIBP monitoring applied. 08:12 Inserted saline lock: 22 gauge in right forearm, using aseptic technique. Blood ll1 collected. 08:28 CT Abd/Pelvis - IV Contrast Only In Process Unspecified. EDMS 08:36 Keith Unger, SHANELL is Primary Nurse. ll1 09:06 Shawn Alcantara is Hospitalizing Provider. ms3 09:07 Type And Screen Sent. ld1 09:07 Blood Culture Adult (2) Sent. ld1 09:07 Lactate w/ 2H reflex if indic. Sent. ld1 09:07 Protime (+inr) Sent. ld1 09:07 Ptt, Activated Sent. ld1 09:08 No provider procedures requiring assistance completed. Inserted saline lock: 20 gauge ld1 in left forearm, using aseptic technique. Blood collected. 09:21 US Abdomen Limited In Process Unspecified. EDMS 10:00 Primary Nurse role handed off by Keith Unger RN hb Administered Medications: 08:22 Drug: NS 0.9% IV 1000 ml IV at 1 bolus Per protocol; 1000 mL bolus Route: IV; Rate: 1 hb bolus; Site: right forearm; 09:16 Follow up: Response: No adverse reaction; IV Status: Infusion continued upon admission ll1 08:22 Drug: Famotidine IVP 20 mg IVP once; dilute with 10 mL 0.9% NaCl; give over 2 minutes hb Route: IVP; Site: right forearm; 09:16 Follow up: Response: No adverse reaction ll1 08:22 Drug: Ondansetron IVP 4 mg IVP once; over 2 minutes Route: IVP; Site: right forearm; hb 09:15 Follow up: Response: No adverse reaction ll1 08:36 Drug: morphine IVP or IV 4 mg IVP once over 4 mins Route: IVP; Infused Over: 4 mins; 1 Site: right forearm; 09:17 Follow up: Response: No adverse reaction 1 Outcome: 09:06 Decision to Hospitalize by Provider. ms3 09:17 Patient left the ED. ll1 10:01 Patient left the ED. bd Signatures: Dispatcher [employer] EDAZ Bailey Bolton Heather, RN RN Keith Unger RN RN ll1 Gold Antonio DO DO ms3 Jazmin Antonio RN RN ld1 Diandra Blackman mg5 Corrections: (The following items were deleted from the chart) 09:15 09:02 Reassessment: No changes from previously documented assessment. Patient and/or ll1 family updated on plan of care and expected duration. Pain level reassessed. Patient is alert, oriented x 3, equal unlabored respirations, skin warm/dry/pink. hb
--- NOTE | 2023-11-04 09:07 | EDPHYS ---
Physician Documentation [facility] Name: Jose Nieves Age: 38 yrs Sex: Male : 1985 Arrival Date: 11/04/2023 Time: 08:01 Bed 5 Private MD: ED Physician Gold Antonio HPI: 11/04 08:22 This 38 yrs old Black Male presents to ER via Ambulatory with complaints of Abdominal ms3 Pain. 08:22 38-year-old male with no past medical history presents to the emergency department for ms3 upper abdominal pain that began on Thursday night. Patient states his pain is an 8/10 and worse with eating. Patient denies radiation of his pain. Patient denies alleviating factors.. Historical: - Allergies: 08:10 No Known Allergies; hb - Immunization history:: Adult Immunizations up to date. - Social history:: Smoking status: Patient denies any tobacco usage or history of. ROS: 08:22 Constitutional: Negative for fever, and chills. Neck: Negative for injury, pain, and ms3 swelling, Cardiovascular: Negative for chest pain, and palpitations. Respiratory: Negative for shortness of breath, cough, wheezing, and pleuritic chest pain, 08:22 MS/Extremity: Negative for injury and deformity, 08:22 Respiratory: Positive for 08:22 Abdomen/GI: Positive for abdominal pain, nausea, vomiting, 08:22 All other systems are negative, Exam: 08:22 Constitutional: This is a well developed, well nourished patient who is awake, alert, ms3 and in no acute distress. Head/Face: Normocephalic, atraumatic. Chest/axilla: Normal chest wall appearance and motion. Nontender with no deformity. Cardiovascular: Regular rate and rhythm with a normal S1 and S2. No gallops, murmurs, or rubs. Normal PMI, no JVD. No pulse deficits. Respiratory: Lungs have equal breath sounds bilaterally, clear to auscultation and percussion. No rales, rhonchi or wheezes noted. No increased work of breathing, no retractions or nasal flaring. Abdomen/GI: Soft, non-tender, with normal bowel sounds. No distension or tympany. No guarding or rebound. No evidence of tenderness throughout. Skin: Warm, dry with normal turgor. Normal color with no rashes, no lesions, and no evidence of cellulitis. Vital Signs: 08:09 BP 140 / 104; Pulse 95; Resp 16; Temp 97.3(TE); Pulse Ox 99% on R/A; Weight 108.86 kg; hb Height 5 ft. 10 in. ; Pain 8/10; 08:30 BP 127 / 89; Pulse 78; Resp 18; Pulse Ox 100% on R/A; ld1 08:09 Body Mass Index 34.44 (108.86 kg, 177.8 cm) hb 08:09 Pain Scale: Adult hb MDM: 08:11 Patient medically screened. ms3 08:22 Differential diagnosis: bowel obstruction, cholecystitis, Cholelithiasis, non-specific ms3 abd pain, pancreatitis. 09:05 ED course: Discussed case with Dr Pina and he would like patient admitted to the [facility] [place] hospitalist, [facility]. Agrees with obtaining US.. 09:06 Data reviewed: vital signs, nurses notes, lab test result(s), radiologic studies, CT ms3 scan, and as a result, I will admit patient. Consideration of Admission/Observation Patient was admitted/placed on observation. Management of patient was discussed with the following: Hospitalist: Dr Alcantara. Office Worker: Dr. Pina. I considered the following discharge prescriptions or medication management in the emergency department Medications were administered in the Emergency Department. See MAR. Counseling: I had a detailed discussion with the patient and/or guardian regarding the historical points, exam findings, and any diagnostic results supporting the discharge/admit diagnosis, lab results, radiology results, the need for further work-up and treatment in the hospital. 11/04 08:11 Order name: CBC with Diff; Complete Time: 08:41 ms3 11/04 08:11 Order name: CMP; Complete Time: 08:41 ms3 11/04 08:11 Order name: Lipase; Complete Time: 08:41 ms3 11/04 08:42 Order name: Blood Culture Adult (2) ms3 11/04 08:42 Order name: Lactate w/ 2H reflex if indic. ms3 11/04 08:42 Order name: Protime (+inr) ms3 11/04 08:42 Order name: Ptt, Activated ms3 11/04 08:42 Order name: Type And Screen ms3 11/04 08:11 Order name: CT Abd/Pelvis - IV Contrast Only; Complete Time: 08:41 ms3 11/04 08:42 Order name: US Abdomen Limited ms3 11/04 08:42 Order name: EKG; Complete Time: 08:43 ms3 11/04 08:11 Order name: IV Saline Lock; Complete Time: 08:13 ms3 11/04 08:11 Order name: Labs collected and sent; Complete Time: 08:13 ms3 11/04 08:42 Order name: Accucheck; Complete Time: 09:07 ms3 11/04 08:42 Order name: Cardiac monitoring; Complete Time: 09:07 ms3 11/04 08:42 Order name: IV Saline Lock - Large Bore; Complete Time: 08:45 ms3 11/04 08:42 Order name: O2 Per Protocol; Complete Time: 09:07 ms3 11/04 08:42 Order name: O2 Sat Monitoring; Complete Time: 09:07 ms3 11/04 08:42 Order name: Vital Signs; Complete Time: 09:07 ms3 Administered Medications: 08:22 Drug: NS 0.9% IV 1000 ml IV at 1 bolus Per protocol; 1000 mL bolus Route: IV; Rate: 1 hb bolus; Site: right forearm; 09:16 Follow up: Response: No adverse reaction; IV Status: Infusion continued upon admission ll1 08:22 Drug: Famotidine IVP 20 mg IVP once; dilute with 10 mL 0.9% NaCl; give over 2 minutes hb Route: IVP; Site: right forearm; 09:16 Follow up: Response: No adverse reaction ll1 08:22 Drug: Ondansetron IVP 4 mg IVP once; over 2 minutes Route: IVP; Site: right forearm; hb 09:15 Follow up: Response: No adverse reaction ll1 08:36 Drug: morphine IVP or IV 4 mg IVP once over 4 mins Route: IVP; Infused Over: 4 mins; ll1 Site: right forearm; 09:17 Follow up: Response: No adverse reaction ll1 Disposition Summary: 11/04/23 09:06 Hospitalization Ordered Notes: Hospitalization Status: Observation ms3 Provider: Shawn Alcantara ms3 Location: Telemetry/MedSurg (observation) ms3 Condition: Stable ms3 Problem: new ms3 Symptoms: are unchanged ms3 Bed/Room Type: Standard ms3 Room Assignment: 403(11/04/23 10:00) bd Diagnosis - Acute cholecystitis ms3 - Upper abdominal pain, unspecified ms3 - Elevated blood-pressure reading, without diagnosis of hypertension ms3 Forms: - Medication Reconciliation Form ms3 - SBAR form ms3 - Leadership Thank You Letter ms3 Signatures: Dispatcher [employer] EDBailey Bruno Heather, RN RN hb Lewis, Lynsay, RN RN 1 Gold Antonio DO DO ms3 Corrections: (The following items were deleted from the chart) 10:00 09:06 ms3 bd
[2023-11-04 09:13] LABS: Protime INR 1.3
[2023-11-04] MEDS ORDERED: NA CHLORIDE 0.9% 100 ML ONE (09:18)
[2023-11-04] MEDS ORDERED: PIPERACIL/TAZO 3.375 GM VIAL IV ONE (09:19)
[2023-11-04] MEDS ORDERED: Ringers Lactate 1,000 ML IV ONE (09:26)
--- NOTE | 2023-11-04 09:37 | RAD REPORT ---
EXAM DESCRIPTION: US - Abdomen Exam Limited - 11/04/2023 9:20 am CLINICAL HISTORY: Abdominal pain. COMPARISON: November 04, 2023 CT FINDINGS: Cholelithiasis. Gallbladder wall is mildly thickened. The biliary tree is normal caliber. IMPRESSION: Cholelithiasis without cholecystitis
[2023-11-04] MEDS ORDERED: propofoL 200 MG/20 ML VIAL IV ONE (09:55)
[2023-11-04] MEDS ORDERED: ROCURONIUM 50 MG/5 ML VIAL IV ONE ×2 (09:55→10:59)
[2023-11-04] MEDS ORDERED: MIDAZOLAM HCL 2 MG/2 ML INJ ONE (09:55)
[2023-11-04] MEDS ORDERED: dexAMETHasone 4 MG/ML VIAL ONE (09:55)
[2023-11-04] MEDS ORDERED: LIDOCAINE 1% MPF 5 ML VIAL ONE (09:55)
[2023-11-04] MEDS ORDERED: FENTANYL CITR 100 MCG/2 ML ONE ×2 (09:55→11:07)
[2023-11-04] MEDS ORDERED: KETOROLAC 30 MG/ML INJ ONE (09:55)
--- NOTE | 2023-11-04 09:57 | P.HP ---
Certification for Inpatient Patient admitted to: Inpatient With expected LOS: <2 Midnights Patient will require the following post-hospital care: None Practitioner: I am a practitioner with admitting privileges, knowledge of patient current condition, hospital course, and medical plan of care. Services: Services provided to patient in accordance with Admission requirements found in Title 42 Section 412.3 of the Code of Federal Regulations Patient History Date of Service: 11/04/23 Reason for admission: abdominal pain, acute cholecystitis History of Present Illness: Jose Nieves is a 38-year-old male with no past medical history who presents to the ED complaining of abdominal pain that started on Thursday night that is worse while eating, no radiation and no alleviating factors. While in the ED he was given Zosyn, Pepcid, Zofran, morphine, LR 1 L, NS 1 L, and Dr. Pina was consulted. He was taken to surgery immediately. Initial vital BP 140 / 104; Pulse 95; Resp 16; Temp 97.3(TE); Pulse Ox 99% on R/A Laboratory evaluation WBC 12.5, H&H 15/47.9, sodium 137, potassium 3.5, BUN/creatinine 5/0.82, T. bili 1.3, lipase 13. CT abdomen pelvis report "Cholelithiasis with cholecystitis". Ultrasound abdomen reports "Cholelithiasis. Gallbladder wall is mildly thickened. The biliary tree is normal caliber. Cholelithiasis without cholecystitis." Jose will be admitted to hospitalist service for further treatment of acute cholecystitis and hypertensive disorder. Allergies No Known Allergies Allergy (Uncoded 11/04/23 15:58) Unknown Home Medications: NK [No Home Meds] 11/04/23 Review of Systems General: Weakness, Malaise Eyes: Unremarkable ENT: Unremarkable Respiratory: Unremarkable Cardiovascular: Unremarkable Gastrointestinal: Abdominal Pain Musculoskeletal: Unremarkable Integumentary: Unremarkable Neurological: Unremarkable Physical Examination - Vital Signs Temperature: 97.3 F Blood Pressure: 127/89 Pulse: 78 Respirations: 18 - Physical Exam General: Alert, In no apparent distress, Oriented x3 HEENT: Atraumatic, Normocephalic, PERRLA Neck: Supple, 2+ carotid pulse no bruit Respiratory: Clear to auscultation bilaterally, Normal air movement Cardiovascular: No edema, Normal pulses, Normal S1 S2 Capillary refill: <2 Seconds Gastrointestinal: Normal bowel sounds, Tenderness (RUQ) Musculoskeletal: No clubbing, No swelling, No contractures Integumentary: No rashes, No breakdown, No significant lesion Neurological: Normal speech, Normal strength at 5/5 x4 extr, Normal tone - Studies Laboratory Data (last 24 hrs) 11/04/23 11/04/23 11/04/23 08:45 08:10 08:10 WBC 12.10 H Hgb 15.3 Hct 47.9 Plt Count 285 PT 14.2 H INR 1.30 APTT 31.5 Sodium 137 Potassium 3.5 BUN 5 L Creatinine 0.82 Glucose 106 Total Bilirubin 1.3 H AST 24 ALT 41 Alkaline Phosphatase 92 Lipase 13 Assessment and Plan - Plan Assessment and plan Acute cholecystitis Abdominal pain Mild Leukocytosis CT abdomen pelvis report "Cholelithiasis with cholecystitis" Ultrasound abdomen reports "Cholelithiasis. Gallbladder wall is mildly thickened. The biliary tree is normal caliber. Cholelithiasis without cholecystitis." T. bili 1.3, lipase 13, H&H 15/47.9, WBC 12.[address] Pina, surgery today Control nausea vomiting Pain control Perioperative antibiotics Zosyn given in the ED Gentle IV fluids Hypertensive disorder likely due to abdominal pain and discomfort BP 140/104 on arrival, BP 127/89 30 minutes later Monitor BP every 4 hours DVT PPx SCDs for now Full code LOS 2 to 3 days Plan to discharge in: 48 Hours - Advance Directives Does patient have a Living Will: No Does patient have a Durable POA for Healthcare: No Time Spent Managing Pts Care (In Minutes): 55
--- NOTE | 2023-11-04 10:01 | P.CNS ---
Date of Consult: 11/04/23 Reason for consult: Abdominal pain History of present illness: Patient is a 38-year-old male comes to the emergency room with 2-day history of postprandial right upper quadrant pain associated with nausea and vomiting. Patient denies any bloating, belching, heartburn, and diarrhea, constipation or blood per rectum. Patient denies any dysuria or hematuria. Patient denies any sore throat, runny nose, cough, headache, dizziness, chest pain, fever or chills. Patient had similar episodes in the past. Review of systems: Otherwise unremarkable Past medical history: Negative Past surgical history: Negative Allergies: None Social history: Patient denies smoking or drinking alcohol Family history: Negative Vital signs: Blood pressure is slightly high otherwise afebrile Physical exam: Awake, alert and oriented x 3 Head and neck exam: No evidence of icterus, no neck masses, no JVD, throat clear and neck supple Chest: Clear Heart: S1-S2 Abdomen: Soft, nondistended, positive bowel sounds, right upper quadrant tenderness with minimal rebound no rigidity or guarding Extremity: Neurovascular intact, nontender Neuro: Nonfocal Diagnostic data: Leukocytosis with cholelithiasis and cholecystitis seen on CAT scan. LFTs within normal limit Assessment: Acute cholecystitis and cholelithiasis Plan/recommendation: Admit, n.p.o., IV fluids, IV antibiotics and to the OR for laparoscopic cholecystectomy possible open. Patient understands risks, benefits and alternatives and agrees to procedure. CC:
[2023-11-04] MEDS ORDERED: ESMOLOL HCL 0 ML IV ONE (10:53)
[2023-11-04] MEDS ORDERED: ESMOLOL HCL 10 ML IV ONE (11:27)
[2023-11-04] MEDS ORDERED: LABETALOL 20 MG/4ML SYRINGE IV ONE (11:28)
[2023-11-04] MEDS: Ringers Lactate 1,000 ML IV ONE ×2 (12:03→12:10)
--- NOTE | 2023-11-04 13:03 | EKG ---
Test Date: 2023-11-04 Test Time: 09:54:41 Seafood Process Worker: DEANDRE MEASUREMENT RESULTS: Intervals: Rate: 82 CA: 172 QRSD: 100 QT: 364 QTc: 425 [place]: P: 37 CA: 172 QRS: 31 T: 44 INTERPRETIVE STATEMENTS: Normal sinus rhythm Normal ECG Compared to ECG 05/27/2022 08:46:52 No significant changes Electronically Signed On 11-04-23 13:02:46 PROFESSOR OF PRACTICE by Jah Evans
[2023-11-04] MEDS ORDERED: ONDANSETRON 4 MG/2 ML VIAL IV PRN (13:29)
[2023-11-04] MEDS: HYDROMORPHONE HCL 1 MG/ML INJ ONE ×4 (14:00→14:35)
[2023-11-04 14:13] LABS: Hematocrit 47.2 % (39.6-49.0)
--- NOTE | 2023-11-04 14:59 | OP ---
Date of Procedure: 11/04/2023 Surgeon: Gregorio Pina MD Poultry Barn Manager: JAQUELIN Grullon. Preoperative Diagnoses: Acute cholecystitis and cholelithiasis. Postoperative Diagnoses: Acute cholecystitis and cholelithiasis. Procedures: 1.Diagnostic laparoscopy. 2.Laparoscopic lysis of adhesions. 3.Open cholecystectomy. Estimated Blood Loss: 500 cc. Specimen: Gallbladder. Findings: As above. Anesthesia: General. Complications: None. Drains: EDDIE #10 flat. Disposition: The patient tolerated the procedure in stable condition, taken to the recovery room in good general condition. Operative Note: The patient was brought to the OR, placed in supine position. General anesthesia be gun. Patient prepped and draped in the usual sterile fashion. Marcaine 0.5% infiltrated locally. A 15 blade used to make a 2 cm incision above the umbilicus. Subcutaneous tissue divided. Fascia vane ntified and divided. A #1 Vicryl stay suture placed. Peritoneal cavity entered with sharp and blunt dissection. A 12 mm trocar placed into the peritoneal cavity under direct vision. Pneumoperitoneum established and then three 5 mm trocars placed, 1 in the epigastric region just to the right of midl ine and 2 in the right subcostal region. With laparoscopy it was hard to see the gallbladder because the colon was attached to the gallbladder. Another 5 mm trocar was placed in the epigastric region to retract the colon away from the gallbladder and the LigaSure was used to carefully dissect the col on away from the gallbladder and the liver. After all the adhesions were taken down, gallbladder was distended, very inflamed. It was aspirated of bile and then fundus was retracted superiorly. Infun dibulum identified, retracted inferolaterally. Cystic duct and cystic artery identified with blunt d issection and clips placed. Both structures divided with cautery, used to remove the gallbladder fro m the liver bed. There was significant amount of oozing from the liver bed. Because of all the infl ammation and there were multiple places where the patient was oozing from. The gallbladder retrieved through the umbilicus via EndoCatch bag. Right upper quadrant was examined and it continued to ooze blood and it was not sure where exactly the bleeding was from. It was very difficult to see because of the patient's anatomy. So at this point, as a safety concern, I opted to open the patient with a right subcostal incision and attaching the epigastric and the subcostal incisions for the laparoscop ic procedure. Subcutaneous tissue divided. Bleeding controlled with cautery. Fascia identified and divided. Rectus abdominal muscle divided. Posterior sheath divided. Peritoneal cavity entered. A fter adequate visualization, there were multiple places of oozing. Cautery was used to control this carefully. There was no active bleeding, but there was oozing. At the end Peace and Surgicel were utilized to slow the oozing down and after a considerable amount of time with pressure and observatio n, there was no further bleeding noted. No evidence of bowel injury. No evidence of bile leakage ap preciated. A Enrike-Baxter drain #10 flat was placed and secured with 3-0 nylon. Then the stay sutu res at the umbilicus were tied to each other to reapproximate the fascial defect and #1 chromic was u sed to close the posterior sheath. The wound was irrigated, bleeding controlled cautery and then #2 Nylon was used to close the fascia. The wound irrigated, bleeding controlled with cautery. All woun ds closed with bart. Sterile dressing applied. Patient awakened, taken to recovery room in good general condition. /MODL Voice ID: [id number] Report ID: [id number]
[2023-11-04] MEDS: HYDROCODONE/APAP 7.5/325 MG TAB PO PRN (15:15)
[2023-11-04] MEDS: NA CHLORIDE 0.9% 1,000 ML IV SCH (15:17)
[2023-11-04 16:07] VITALS: BMI 34.4
[2023-11-04] MEDS: PIPER TAZO 3.375 GM in NA CHLORIDE 0.9% 100 ML IV SCH (17:42)
[2023-11-04] MEDS: HYDROMORPHONE HCL 1 MG/ML INJ IV PRN ×2 (17:46→20:54)
[2023-11-04 18:46] LABS: Hematocrit 41.5 % (39.6-49.0)
[2023-11-05] MEDS: PIPER TAZO 3.375 GM in NA CHLORIDE 0.9% 100 ML IV SCH ×3 (02:08→16:16)
[2023-11-05] MEDS: NA CHLORIDE 0.9% 1,000 ML IV SCH ×3 (02:10→20:57)
[2023-11-05] MEDS: HYDROMORPHONE HCL 1 MG/ML INJ IV PRN ×4 (02:10→16:13)
[2023-11-05] MEDS: HYDROCODONE/APAP 7.5/325 MG TAB PO PRN ×2 (04:27→20:58)
[2023-11-05 07:05] LABS: Absolute Lymphocytes (CBC) 1.2 K/uL (0.7-4.9); Hematocrit 39.5 % (39.6-49.0); MCV 81.4 fL (80-100); MPV 7.7 fL (7.6-11.3); Platelets 258 thou/uL (152-406); RBC Red Blood Cell Count 4.85 M/uL (4.33-5.43)
[2023-11-05 07:23] LABS: Magnesium 1.9 mg/dL (1.6-2.4); Phosphorus 2.4 mg/dL (2.5-4.9); Potassium 3.3 mEq/L (3.5-5.1)
--- NOTE | 2023-11-05 09:29 | PN ---
Date of Progress Note: 11/05/2023 Subjective: Patient is awake, alert, complaining of incisional pain. Objective: Vital Signs: Stable. He is afebrile. Nurse reports approximately 30 cc of serosanguine ous fluid out of the EDDIE drain last shift. Abdomen: Soft, slightly distended. Positive bowel sounds. Incisional tenderness. No peritonitis. Laboratory Data: His white count is 11.3. His H and H are 12.6 and 39.5. Chemistry reviewed. Pota ssium and phosphorus are being replaced. Assessment: Status post open cholecystectomy. Recommendations: IV antibiotics. Advance diet as tolerated. Encourage ambulation, incentive spirom etry. Discharge likely in 24-48 hours. /MODL Voice ID: [id number] Report ID: [id number]
[2023-11-05] MEDS ORDERED: POTASSIUM CL SA 10 MEQ TAB PO ONE (11:00)
--- NOTE | 2023-11-05 17:11 | P.PN ---
Subjective Date of Service: 11/05/23 Chief Complaint: abdominal pain, acute cholecystitis Patient reports intermittent abdominal pain. He denies any bowel movement or flatus. He is tolerating clear liquid diet. Physical Examination - Vital Signs Temperature: 98.6 F Blood Pressure: 134/86 Pulse: 108 Respirations: 16 Pulse Ox (%): 94 Assessment And Plan - Plan Physical Exam General: Alert, In no apparent distress, Oriented x3 HEENT: Atraumatic, Normocephalic, PERRLA Respiratory: Clear to auscultation bilaterally, Normal air movement Cardiovascular: No edema, Normal pulses, Normal S1 S2 Gastrointestinal: Abdominal binder in place, EDDIE drain with sanguinous fluid Musculoskeletal: No clubbing, No swelling. Integumentary: No rashes, No breakdown, No significant lesion Neurological: Normal speech, Normal strength at 5/5 x4 extr, Normal tone Assessment and Plan Acute cholecystitis Abdominal pain Mild Leukocytosis CT abdomen pelvis report "Cholelithiasis with cholecystitis" Ultrasound abdomen reports "Cholelithiasis. Gallbladder wall is mildly thickene d. The biliary tree is normal caliber. Cholelithiasis without cholecystitis." T. bili 1.3, lipase 13, H&H 15/47.9, WBC 12.5 Dr. Pina, status post open cholecystectomy EDDIE drain left in place. Analgesics as needed Continue IV Zosyn Started on clear liquid diet per surgery. Continue IV fluids Acute blood loss anemia Dr. Pina reports significant blood loss intra-op. HB dropped from 15 to 12. Monitor and transfuse prn. DVT : SCD Full code
[2023-11-06] MEDS: PIPER TAZO 3.375 GM in NA CHLORIDE 0.9% 100 ML IV SCH ×3 (01:59→16:39)
[2023-11-06] MEDS: HYDROMORPHONE HCL 1 MG/ML INJ IV PRN ×4 (03:42→21:04)
[2023-11-06] MEDS: NA CHLORIDE 0.9% 1,000 ML IV SCH ×2 (03:47→14:00)
[2023-11-06 07:29] LABS: Phosphorus 2.1 mg/dL (2.5-4.9); Potassium 3.3 mEq/L (3.5-5.1)
[2023-11-06 07:31] LABS: Absolute Lymphocytes (CBC) 1.7 K/uL (0.7-4.9); Hematocrit 35.7 % (39.6-49.0); MCV 80.7 fL (80-100); MPV 7.5 fL (7.6-11.3); Platelets 230 thou/uL (152-406); RBC Red Blood Cell Count 4.43 M/uL (4.33-5.43)
[2023-11-06] MEDS: POTASS/SODIUM PHOSPHATE 1 PKT POWD.PACK PO SCH ×3 (09:01→11:38)
--- NOTE | 2023-11-06 09:37 | PN ---
Date of Progress Note: 11/06/2023 Subjective: The patient is awake, alert, not really hungry, not ambulating much, not using incentive spirometer. Objective: Vital Signs: Stable. Afebrile. T-max is 99.6. Abdomen: Slightly distended, soft, incisional tenderness, but no peritonitis. Laboratory Data: Shows a white count of 9.3. There is no left shift. H and H are 11.9 and 35.7, slightly decreased from yesterday's. EDDIE output had serosanguineous fluid in it and the output is not documented in the I's and O's. I will check with the nurses to find out exactly how much, it does not appear to be a lot. Assessment: Status post open cholecystectomy with possible ileus. Recommendations: Advance diet as tolerated. Continue IV antibiotics. Encourage ambulation. Continue IV antibiotics. Incentive spirometry. When the patient is able to tolerate diet and ambulate, pain control on p.o. pain medications, afebrile, the patient from a surgical standpoint can be discharged to home within the next 24-48 hours. Discharge instructions given. Medications called into the patient's pharmacy. Dr. Jalloh will cover should there be a need for surgical evaluation of this patient in the next 24-48 hours, as I am leaving [facility] for the weekend. RHONDA/MENDY Voice ID: [id number] Report ID: [id number] MTDD
--- NOTE | 2023-11-06 18:29 | P.PN ---
Subjective Date of Service: 11/06/23 Chief Complaint: abdominal pain, acute cholecystitis Patient reports abdominal bloating. He stated he had flatus this morning. No BM yet. He is tolerating regular diet. Physical Examination - Vital Signs Temperature: 98.2 F Blood Pressure: 167/94 Pulse: 110 Respirations: 18 Pulse Ox (%): 96 Assessment And Plan - Plan Physical Exam General: Alert, In no apparent distress, Oriented x3 Respiratory: Clear to auscultation bilaterally, Normal air movement Cardiovascular: No edema, Normal pulses, Normal S1 S2 Gastrointestinal: Abdominal binder in place, EDDIE drain with sanguinous fluid Musculoskeletal: No clubbing, No swelling. Integumentary: No rashes, No breakdown, No significant lesion Neurological: Normal speech, Normal strength at 5/5 x4 extr, Normal tone Assessment and Plan Acute cholecystitis Abdominal pain Mild Leukocytosis CT abdomen pelvis report "Cholelithiasis with cholecystitis" Ultrasound abdomen reports "Cholelithiasis. Gallbladder wall is mildly thickened. The biliary tree is normal caliber. Cholelithiasis without cholecyst itis." T. bili 1.3, lipase 13, H&H 15/47.9, WBC 12.5 Status post open cholecystectomy by Dr. Pina EDDIE drain left in place. Analgesics as needed Continue IV Zosyn Started on clear liquid diet per surgery advanced to regular diet. Continue IV fluids. Increase activity as tolerated. Acute blood loss anemia Dr. Pina reports significant blood loss intra-op. Hemoglobin continues to drop. Continue to monitor H&H and transfuse as needed DVT : SCD Full code
[2023-11-07] MEDS: PIPER TAZO 3.375 GM in NA CHLORIDE 0.9% 100 ML IV SCH ×2 (01:39→08:21)
[2023-11-07] MEDS: NA CHLORIDE 0.9% 1,000 ML IV SCH (06:00)
[2023-11-07 06:14] LABS: Absolute Lymphocytes (CBC) 1.3 K/uL (0.7-4.9); Hematocrit 35.3 % (39.6-49.0); Lymphocytes % 14.4 % (15.3-44.8); MCV 80.1 fL (80-100); MPV 7.4 fL (7.6-11.3); Platelets 270 thou/uL (152-406); RBC Red Blood Cell Count 4.41 M/uL (4.33-5.43)
[2023-11-07 06:28] LABS: Magnesium 2.1 mg/dL (1.6-2.4); Phosphorus 2.7 mg/dL (2.5-4.9); Potassium 3.3 mEq/L (3.5-5.1)
[2023-11-07] MEDS ORDERED: POTASSIUM CL SA 10 MEQ TAB PO ONE (08:00)
[2023-11-07] MEDS: HYDROCODONE/APAP 7.5/325 MG TAB PO PRN (08:20)
[2023-11-07 09:44] VITALS: BP 151/84; TEMP 98.1
[2023-11-07 09:59] VITALS: O2SAT 96
--- NOTE | 2023-11-07 12:11 | P.DS ---
Admission Date: 11/04/23 Discharge Date: 11/07/23 Disposition: ROUTINE DISCHARGE Discharge Condition: GOOD Reason for Admission: abdominal pain, acute cholecystitis Brief History of Present Illness: Jose Nieves is a 38-year-old male with no past medical history who presents to the ED complaining of abdominal pain worse with eating, no radiation and no alleviating factors. While in the ED, CT abdomen pelvis reported cholelithiasis with cholecystitis. He was given Zosyn, Pepcid, Zofran, morphine, LR 1 L, NS 1 L, and Dr. Pina was consulted. He was taken to surgery immediately. He was admitted for further management. Hospital Course: Patient admitted to the medical floor and the following medical problems addressed: Acute cholecystitis Abdominal pain Mild Leukocytosis CT abdomen pelvis reported "Cholelithiasis with cholecystitis" Ultrasound abdomen reports "Cholelithiasis. Gallbladder wall is mildly thickened. The biliary tree is normal caliber. T. bili 1.3, lipase 13, H&H 15/47.9, WBC 12.5 Status post open cholecystectomy by Dr. Pina EDDIE drain left in place. Analgesics as needed Currently treated with IV Zosyn Started on clear liquid diet per surgery and advanced to regular diet which he tolerated. He was also on IV fluids briefly. Patient had a bowel movement and has been ambulatory. Patient deemed stable for discharge. He is informed to follow-up with Dr. Pina within 1 week. Acute blood loss anemia Dr. Pina reports significant blood loss intra-op. Hemoglobin up from 15 to 11 Currently stable. Minimal EDDIE drain output. Vital Signs/Physical Exam: Temp Pulse Resp BP Pulse Ox 98.1 F 95 H 20 151/84 H 97 11/07/23 08:00 11/07/23 08:00 11/07/23 09:20 11/07/23 08:00 11/07/23 09:20 General: Alert, Oriented x3 HEENT: Mucous membr. moist/pink Neck: Supple, JVD not distended Respiratory: Clear to auscultation bilaterally, Normal air movement Cardiovascular: No edema, Regular rate/rhythm, Normal S1 S2 Gastrointestinal: Normal bowel sounds, Soft and benign, Non-distended Musculoskeletal: No swelling Integumentary: No rashes Neurological: Normal strength at 5/5 x4 extr Laboratory Data at Discharge: WBC 9.30 thou/uL (4.3-10.9) 11/07/23 05:40 Hgb 11.6 g/dL (13.6-17.9) L 11/07/23 05:40 Hct 35.3 % (39.6-49.0) L 11/07/23 05:40 Plt Count 270 thou/uL (152-406) 11/07/23 05:40 PT 14.2 SECONDS (9.5-12.5) H 11/04/23 08:45 INR 1.30 11/04/23 08:45 APTT 31.5 SECONDS (24.3-36.9) 11/04/23 08:45 Sodium 136 mEq/L (136-145) 11/07/23 05:40 Potassium 3.3 mEq/L (3.5-5.1) L 11/07/23 05:40 BUN 7 mg/dL (7-18) 11/07/23 05:40 Creatinine 0.58 mg/dL (0.70-1.30) L 11/07/23 05:40 Glucose 99 mg/dL (74-106) 11/07/23 05:40 Phosphorus 2.7 mg/dL (2.5-4.9) 11/07/23 05:40 Magnesium 2.1 mg/dL (1.6-2.4) 11/07/23 05:40 Total Bilirubin 1.3 mg/dL (0.2-1.0) H 11/04/23 08:10 AST 24 U/L (15-37) 11/04/23 08:10 ALT 41 U/L (16-61) 11/04/23 08:10 Alkaline Phosphatase 92 U/L (45-117) 11/04/23 08:10 Lipase 13 U/L (13-75) 11/04/23 08:10 Home Medications: NK [No Home Meds] 11/04/23 Physician Discharge Instructions: Dry gauze to wound daily May shower with plastic cover over the wounds Cipro, Flagyl, Amity 7.5 and Colace have been called into patient's pharmacy No heavy lifting or strenuous exercise Record EDDIE output every 12 and bring record to office Teach patient and family how to care for the EDDIE drain, strip tubing as needed Incentive spirometry as instructed Abdominal binder as instructed Follow-up my office 1 week, call for appointment Resume home meds and diet Diet: Low sodium Activity: No lifting more than 10 lbs Followup: NONE,NONE [Primary Care Provider] - Gregorio Pina MD [ACTIVE - CAN ADMIT] - 1 Week Time spent managing pt's care (in minutes): 33
== END 2023-11-07 13:15 | disposition home or self-care (01) | DRG 415 ==
LOC: ER 08:01 → 4TH 10:31
PROVIDERS: ADMIT Internal Medicine; ATTEND Internal Medicine
PROC: 0DNE4ZZ Release Large Intestine, Percutaneous Endoscopic Approach (ICD-10-PCS; 2023-11-04)
PROC: 0FJ44ZZ Inspection of Gallbladder, Percutaneous Endoscopic Approach (ICD-10-PCS; 2023-11-04)
PROC: 0FT40ZZ Resection of Gallbladder, Open Approach (ICD-10-PCS; principal; 2023-11-04 10:30)
DX: K80.00 Calculus of gallbladder with acute cholecystitis without obstruction (principal); D62 Acute posthemorrhagic anemia; R03.0 Elevated blood-pressure reading, without diagnosis of hypertension; D72.829 Elevated white blood cell count, unspecified; Z53.31 Laparoscopic surgical procedure converted to open procedure
CPT/HCPCS: 36415; 74177; 76705; 80048; 80053; 83605; 83690; 83735; 84100; 85014; 85018; 85025; 85610; 85730; 86850; 86900; 86901; 87040; 88304; 93005; 94010; 96361; 96374; 96375; 97116; 97161; 97530; 99284; J1100; J1170; J2001; J2250; J2405; J2543; J2704; J3010; J7030; J7120; Q9967

== ENCOUNTER → 2023-11-10 | Emergency (ER) | payer SELFPAY ==
[~2023-11-10] MED LIST: MORPHINE 4 MG/ML SYR ONE; NA CHLORIDE 0.9% 1,000 ML ONE; ONDANSETRON 4 MG/2 ML VIAL ONE
[2023-11-10 07:25] LABS: Specific Gravity 1.011 (1.005-1.030); Urine Bacteria None Seen /HPF (<20); Urine Bilirubin NEGATIVE (Negative); Urine Blood Negative (Negative); Urine Clarity Turbid (Clear); Urine Color Light-Yellow (Yellow); Urine Glucose NEGATIVE (Negative); Urine Mucus Slight /HPF (None Seen); Urine Protein NEGATIVE (Negative); Urine RBC <5 /HPF (None Seen); Urine Urobilinogen 1+ (Normal)
--- NOTE | 2023-11-10 07:33 | RAD REPORT ---
EXAM DESCRIPTION: CTAbdomen Pelvis W Contrast - 11/10/2023 7:20 am CLINICAL HISTORY: ABD pain after cholecystectomy COMPARISON: Abdomen Pelvis W Contrast dated 11/04/2023; Abdomen Pelvis W Contrast dated 9 TECHNIQUE: CT of the abdomen and pelvis was performed. All CT scans are performed using dose optimization technique as appropriate and may include automated exposure control or mA/KV adjustment according to patient size. FINDINGS: Lower chest: No acute abnormality. Liver: Hepatic steatosis. Biliary: Interval cholecystectomy. Mild appearance of contents at the gallbladder containing gas and to lesser extent fluid. This measures approximately 9.9 x 8.6 x 4.8 cm. Drain in the right upper quad rant noted. This terminates just inferior and lateral to the gallbladder fossa contents. Stomach: No significant focal abnormality. Duodenum: No significant focal abnormality. Pancreas: No significant abnormality. Spleen: No significant abnormality. Adrenal: No suspicious lesions. Kidney/ureter: No hydronephrosis. No renal calculi. Retroperitoneum: No retroperitoneal adenopathy. Vascular: No aneurysm. Bowel: No significant focal abnormality. Peritoneum: Small volume of free fluid. Abdominal wall surgical changes. Bladder: Grossly unremarkable. Reproductive: No adnexal masses. Bones: No acute fracture. Other: n/a IMPRESSION: Interval cholecystectomy. Gallbladder fossa collection containing mottled contents that includes some fluid, gas, and interspersed fat attenuation. The appearance of gas could also be in pa rt due to Surgicel if this was used during the surgery. The drain is located lateral and inferior and not in communication with the gallbladder fossa contents. Though this could ultimately form an absce ss, most of the contents are not fluid and percutaneous drainage at this time may not be effective yoo ving only a small fluid conent.
[2023-11-10 09:03] LABS: Absolute Lymphocytes (CBC) 1.7 K/uL (0.7-4.9); Hematocrit 39.1 % (39.6-49.0); Lymphocytes % 12.8 % (15.3-44.8); MCV 80.5 fL (80-100); Platelets 370 thou/uL (152-406); RBC Red Blood Cell Count 4.86 M/uL (4.33-5.43)
[2023-11-10 09:28] LABS: Bilirubin Total 0.8 mg/dL (0.2-1.0); Potassium 3.5 mEq/L (3.5-5.1); Protein, Total 7.4 g/dL (6.4-8.2)
[2023-11-10 09:29] LABS: Albumin 2.8 g/dL (3.4-5.0)
--- NOTE | 2023-11-10 09:44 | EDPHYS ---
Physician Documentation [facility] Name: Jose Nieves Age: 38 yrs Sex: Male : 1985 Arrival Date: 11/10/2023 Time: 05:11 Bed 7 Private MD: ED Physician João Barreto HPI: 11/10 05:38 This 38 yrs old Black Male presents to ER via EMS with complaints of abdominal pain sp4 after cholecystectomy . 05:38 PMH - Date of Procedure: 11/04/2023 Surgeon: Gregorio Pina MD Mirror Machine Feeder: [place] Spangler, ash HAMMER. Preoperative Diagnoses: Acute cholecystitis and cholelithiasis. Postoperative Diagnoses: Acute cholecystitis and cholelithiasis. Procedures: 1. Diagnostic laparoscopy. 2. Laparoscopic lysis of adhesions. 3. Open cholecystectomy. Estimated Blood Loss: 500 cc. Specimen: Gallbladder.. Patient presents with EMS postoperative day 6 after open cholecystectomy on 11/04/2023. Patient developed worsening abdominal pain on the right side and also states his EDDIE drain is not draining. Patient feels abdominal bloating. . Historical: - Allergies: 05:34 No Known Allergies; ha1 - Immunization history:: Adult Immunizations unknown. - Social history:: Smoking status: Patient denies any tobacco usage or history of. - Family history:: not pertinent. ROS: 05:38 Constitutional: Negative for fever, chills, and weight loss, positive right abdominal sp4 pain, positive bloating, positive nondraining EDDIE 05:38 All other systems are negative, Exam: 05:38 Constitutional: This is a well developed, well nourished patient who is awake, alert, sp4 and in no acute distress. Head/Face: Normocephalic, atraumatic. Eyes: Pupils equal round and reactive to light, extra-ocular motions intact. Lids and lashes normal. Conjunctiva and sclera are not injected. Cornea within normal limits. Periorbital areas with no swelling, redness, or edema. ENT: Nares patent. No nasal discharge, no septal abnormalities noted. Tympanic membranes are normal and external auditory canals are clear. Oropharynx with no redness, swelling, or masses, exudates, or evidence of obstruction, uvula midline. Mucous membranes moist. Neck: Trachea midline, no thyromegaly or masses palpated, and no cervical lymphadenopathy. Supple, full range of motion without nuchal rigidity, or vertebral point tenderness. Chest/axilla: Normal chest wall appearance and motion. Nontender with no deformity. No lesions are appreciated. Cardiovascular: Regular rate and rhythm with a normal S1 and S2. No gallops, murmurs, or rubs. Normal PMI, no JVD. No pulse deficits. Respiratory: Lungs have equal breath sounds bilaterally, clear to auscultation and percussion. No rales, rhonchi or wheezes noted. No increased work of breathing, no retractions or nasal flaring. Abdomen/GI: Soft, with normal bowel sounds. No distension or tympany. No guarding or rebound. Positive postoperative abdominal incisions that are clean dry and intact, with the largest incision in the right upper quadrant from open cholecystectomy. Positive abdominal bloating positive abdominal tenderness diffusely Back: No spinal tenderness. No costovertebral tenderness. Skin: Warm, dry with normal turgor. Normal color with no rashes, no lesions, and no evidence of cellulitis. MS/ Extremity: Pulses equal, no cyanosis. Neurovascular intact. Full, normal range of motion. Neuro: Awake and alert, GCS 15, oriented to person, place, time, and situation. Cranial nerves II-XII grossly intact. Motor strength 5/5 in all extremities. Sensory grossly intact. Psych: Awake, alert, with orientation to person, place and time. Behavior, mood, and affect are within normal limits Vital Signs: 05:16 BP 138 / 86; Pulse 85; Resp 17 S; Temp 98.1; Pulse Ox 98% on R/A; Weight 102.06 kg; ha1 Height 5 ft. 8 in. ; 05:44 BP 131 / 88; Pulse 87; Resp 16; Pulse Ox 98% on R/A; kl 07:08 BP 133 / 90; Pulse 84; Resp 15; Pulse Ox 96% ; ko1 08:36 BP 141 / 90; Pulse 90; Resp 15; Pulse Ox 100% ; ko1 10:00 BP 144 / 87; Pulse 83; Resp 17; Pulse Ox 99% on R/A; rs5 05:16 Body Mass Index 34.21 (102.06 kg, 172.72 cm) ha MDM: 05:17 Patient medically screened. sp4 06:23 Differential Diagnosis altered mental status, sepsis, flu. Data reviewed: vital signs, sp4 nurses notes, EMS record, lab test result(s), CBC, electrolytes, hepatic panel, urinalysis, radiologic studies, CT scan. Consideration of Admission/Observation Escalation of care including admission/observation considered. ED course: Patient presents with acutely worsening right abdominal pain after open cholecystectomy. Patient is awaiting on CT abdomen pelvis with IV contrast. 09:48 Management of patient was discussed with the following: Door To Door Selling Agent: Discussed with Dr. rt Pina, states that the area in question on the CT scan was Surgicel that he packed in there. Request that patient be continued on his antibiotics which he is currently taking. Will follow-up patient tomorrow in the office.. I considered the following discharge prescriptions or medication management in the emergency department Medications were administered in the Emergency Department. See MAR. Independent interpretation of the following test(s) in the Emergency Department CT Scan: My interpretation is No bowel obstruction some interpretation of CT scan images. Counseling: I had a detailed discussion with the patient and/or guardian regarding the historical points, exam findings, and any diagnostic results supporting the discharge/admit diagnosis, lab results, radiology results, to return to the emergency department if symptoms worsen or persist or if there are any questions or concerns that arise at home. 11/10 05:16 Order name: CBC with Diff; Complete Time: 09:29 sp4 11/10 05:16 Order name: CMP; Complete Time: 09:29 sp4 11/10 05:16 Order name: Lipase; Complete Time: 09:29 sp4 11/10 05:16 Order name: Urinalysis w/ reflexes; Complete Time: 07:37 sp4 11/10 05:16 Order name: CT Abd/Pelvis - IV Contrast Only; Complete Time: 07:37 sp4 11/10 05:16 Order name: IV Saline Lock; Complete Time: 05:42 sp4 11/10 05:16 Order name: Labs collected and sent; Complete Time: 06:02 sp4 Administered Medications: 06:01 Drug: Ondansetron IVP 4 mg IVP once; over 2 minutes Route: IVP; Site: left antecubital; ha1 07:10 Follow up: Response: No adverse reaction rs5 06:02 Drug: morphine IVP or IV 4 mg IVP once over 4 mins Route: IVP; Infused Over: 4 mins; ha1 Site: left antecubital; 07:10 Follow up: Response: No adverse reaction; Pain is decreased rs5 06:03 Drug: NS 0.9% IV 1000 ml IV at 1 bolus Per protocol; 1000 mL bolus Route: IV; Rate: 1 ha1 bolus; Site: left antecubital; 07:10 Follow up: Response: No adverse reaction rs5 Disposition Summary: 11/10/23 09:44 Discharge Ordered Notes: Location: Home rt Problem: new rt Symptoms: have improved rt Condition: Stable rt Diagnosis - Postoperative abdominal pain rt Followup: rt - With: Gregorio Pina MD - When: Tomorrow - Reason: Discharge Instructions: - Discharge Summary Sheet rt - Open Cholecystectomy, Care After rt Forms: - Medication Reconciliation Form rt - Thank You Letter rt - Antibiotic Education rt - Prescription Opioid Use rt - Patient Portal Instructions rt - Leadership Thank You Letter rt Signatures: Dispatcher [employer] Poppy Reilly RN RN ha1 João Barreto MD MD rt Gil Cline MD MD sp4 Santo Haddad RN rs5
--- NOTE | 2023-11-10 09:44 | ER ---
Nurse's Notes [facility] Name: Jose Nieves Age: 38 yrs Sex: Male : 1985 Arrival Date: 11/10/2023 Time: 05:11 Bed 7 Private MD: Diagnosis: Postoperative abdominal pain Presentation: 11/10 05:16 Chief complaint: EMS states: 38 year old male had gallbladder removed on the ha1 this month. reports the drainage tube has no drained on the past 24 hours. pain at right lower quadrant. no bowel movement since surgery. 05:16 Coronavirus screen: Vaccine status: Patient reports being unvaccinated. Ebola Screen: ha1 No symptoms or risks identified at this time. Initial Sepsis Screen: Does the patient meet any 2 criteria? No. Patient's initial sepsis screen is negative. Does the patient have a suspected source of infection? No. Patient's initial sepsis screen is negative. Risk Assessment: Do you want to hurt yourself or someone else? Patient reports no desire to harm self or others. Onset of symptoms was November 10, 2023. 05:16 Method Of Arrival: EMS: [facility] 1 05:16 Acuity: NEDA 3 ha1 Triage Assessment: 05:16 General: Appears uncomfortable, Behavior is calm, cooperative. Pain: Complains of pain ha1 in right lower quadrant Pain radiates to right mid back Pain currently is 9 out of 10 on a pain scale. Quality of pain is described as throbbing, Pain began gradually. Neuro: Level of Consciousness is awake, alert, obeys commands, Oriented to person, place, time, situation. Cardiovascular: Capillary refill < 3 seconds Patient's skin is warm and dry. GI: Abdomen is round non-distended, in place, to gravity drainage. Site clean. tube (EDDIE). GI: Reports constipation. : No signs and/or symptoms were reported regarding the genitourinary system. Musculoskeletal: Circulation, motion, and sensation intact. Range of motion: intact in all extremities. Historical: - Allergies: 05:34 No Known Allergies; ha1 - Immunization history:: Adult Immunizations unknown. - Social history:: Smoking status: Patient denies any tobacco usage or history of. - Family history:: not pertinent. Screenin:16 [facility] ED Fall Risk Assessment (Adult) History of falling in the last 3 months, ha1 including since admission No falls in past 3 months (0 pts) Confusion or Disorientation No (0 pts) Intoxicated or Sedated No (0 pts) Impaired Gait No (0 pts) Mobility Assist Device Used No (0 pt) Altered Elimination No (0 pt) Score/Fall Risk Level 0 - 2 = Low Risk Oriented to surroundings, Maintained a safe environment, Educated pt \\T\\ family on fall prevention, incl call for assistance when getting out of bed, Hourly rounding (assess needs \\T\\ fall precautionary measures) done. Abuse screen: Denies threats or abuse. Denies injuries from another. Nutritional screening: No deficits noted. Tuberculosis screening: No symptoms or risk factors identified. Assessment: 05:16 Reassessment: see triage assessment. ha1 06:03 Reassessment: Patient and/or family updated on plan of care and expected duration. Pain ha1 level reassessed. Patient is alert, oriented x 3, equal unlabored respirations, skin warm/dry/pink. 07:10 General: Appears in no apparent distress. comfortable, Behavior is calm, cooperative. rs5 Pain: Denies pain. Neuro: Level of Consciousness is awake, alert, obeys commands, Oriented to person, place, time, situation. Cardiovascular: Heart tones S1 S2 present Rhythm is regular. Respiratory: Airway is patent Respiratory effort is even, unlabored, Respiratory pattern is regular, symmetrical, Breath sounds are clear bilaterally. GI: Abdomen is round non-distended, Drainage kit and tube noted to pt's lower abdomen. No fluid in drainage container, pt states "it stopped draining yesterday" Bowel sounds present X 4 quads. Reports constipation, Patient currently denies nausea, pain, vomiting. 07:10 : No signs and/or symptoms were reported regarding the genitourinary system. EENT: No rs5 signs and/or symptoms were reported regarding the EENT system. Derm: Skin is intact, Skin is dry, Skin is normal, Skin temperature is warm. Musculoskeletal: Range of motion: intact in all extremities. 09:12 Reassessment: No lab results back from this morning, contacted lab who states they do ko1 not have specimens. Labs redrawn and sent. Vital Signs: 05:16 BP 138 / 86; Pulse 85; Resp 17 S; Temp 98.1; Pulse Ox 98% on R/A; Weight 102.06 kg; ha1 Height 5 ft. 8 in. ; 05:44 BP 131 / 88; Pulse 87; Resp 16; Pulse Ox 98% on R/A; kl 07:08 BP 133 / 90; Pulse 84; Resp 15; Pulse Ox 96% ; ko1 08:36 BP 141 / 90; Pulse 90; Resp 15; Pulse Ox 100% ; ko1 10:00 BP 144 / 87; Pulse 83; Resp 17; Pulse Ox 99% on R/A; rs5 05:16 Body Mass Index 34.21 (102.06 kg, 172.72 cm) ha1 ED Course: 05:15 Patient arrived in ED. kl 05:16 Gil Cline MD is Attending Physician. sp4 05:16 Patient has correct armband on for positive identification. Placed in gown. Bed in low ha1 position. Call light in reach. Side rails up X 1. 05:30 Missed attempt(s): 20 gauge in right forearm. ha1 05:34 Triage completed. ha1 05:39 Radiology exam delayed due to lab results not completed at this time. (BUN/Creatinine) eh4 IV insertion attempt and/or patient not having appropriate IV at this time. 05:42 CBC with Diff Sent. kl 05:42 CMP Sent. kl 05:42 Lipase Sent. kl 05:44 Inserted saline lock: 22 gauge in left antecubital area, using aseptic technique. Blood kl collected. 07:05 Attending Physician role handed off by Gil Cline MD rt 07:05 João Barreto MD is Attending Physician. rt 07:22 CT Abd/Pelvis - IV Contrast Only In Process Unspecified. EDMS 08:33 Pricila Bermudez, SHANELL is Primary Nurse. ko1 09:43 Gregorio Pina MD is Referral Physician. rt 10:15 No provider procedures requiring assistance completed. rs5 10:15 IV discontinued, intact, bleeding controlled, No redness/swelling at site. Pressure rs5 dressing applied. Administered Medications: 06:01 Drug: Ondansetron IVP 4 mg IVP once; over 2 minutes Route: IVP; Site: left antecubital; ha1 07:10 Follow up: Response: No adverse reaction rs5 06:02 Drug: morphine IVP or IV 4 mg IVP once over 4 mins Route: IVP; Infused Over: 4 mins; ha1 Site: left antecubital; 07:10 Follow up: Response: No adverse reaction; Pain is decreased rs5 06:03 Drug: NS 0.9% IV 1000 ml IV at 1 bolus Per protocol; 1000 mL bolus Route: IV; Rate: 1 ha1 bolus; Site: left antecubital; 07:10 Follow up: Response: No adverse reaction rs5 Medication: 05:40 VIS not applicable for this client. ha1 Outcome: 09:44 Discharge ordered by . rt 10:15 Discharged to home ambulatory, rs5 10:15 Condition: stable 10:15 Discharge instructions given to patient, Instructed on discharge instructions, follow up and referral plans. Demonstrated understanding of instructions, follow-up care, 10:18 Patient left the ED. rs5 Signatures: Dispatcher [employer] EDMagda Neumann RN RN kl Ayala, Heidy, RN RN ha1 Lucille Fischer 4 Pricila Bermudez RN RN ko1 [place], Ryan, MD MD rt Santo Haddad RN RN rs5 Gil Cline MD MD sp4
[2023-11-10 14:22] VITALS: TEMP 98.1
[2023-11-10 14:27] VITALS: BP 141/90; O2SAT 100
== END ==
LOC: ER 05:11
DX: G89.18 Other acute postprocedural pain (principal); Z90.49 Acquired absence of other specified parts of digestive tract
CPT/HCPCS: 36415; 74177; 80053; 81001; 83690; 85025; 96374; 96375; 99284; J2405; J7030; Q9967